=== PATIENT | male | born 1950 | race Caucasian/White ===

== ENCOUNTER → 2017-01-27 | Day surgery (SDC) | payer OTHER ==
[~2017-01-27] VITALS: Ht 180.3 cm; Wt 103.1 kg
[~2017-01-27] MED LIST: *HYDROmorphone PF 1 MG VIAL PERIprocedural Use ONLY ONE; *RESP: ALBUTEROL 2.5 MG/3 ML NEB (PRN) PERIprocedural Use ONLY NEB ONE; *morphine SULFATE 8 MG/ML PERIprocedure ONLY ONE; ACETAMINOPHEN 1000 MG/100 ML VIAL IV ONE; ACETAMINOPHEN 1000 MG/100 ML VIAL IV SCH; ASPI1TAB69 PO; ATOR40TA16 PO; BUPIVACAINE LIPOSOME PF 1.3% 20 ML VIAL NERV BLOCK ONE; BUPIVACAINE/EPINEPHRINE 0.25% 50 ML VIAL ONE; BUPIVACAINE/EPINEPHRINE 0.5% PF 30 ML VIAL ONE; CARD4TAB2 PO; COUM10TA PO; COUM7.5T PO; DEXAMETHASONE SOD PHOS 4 MG/ML VIAL ONE; DO NOT ADM ANY ANTICOAGULANT DRUGS XX PRN; ENOX100P SQ; FAMOTIDINE 20 MG/2 ML VIAL ONE; INSULIN HUMAN REGULAR 1,000 UNITS/10 ML VIAL SQ PRN; JANT10TA PO; JANT7.5T PO; KETOROLAC TROMETHAMINE 60 MG/2 ML (IM) VIAL IM ONE; LACTATED RINGER'S 1000 ML IV SCH; LISI10TA3 PO; METOPROLOL TARTRATE 25 MG TAB PO PRN; MIDAZOLAM HCL 2 MG/2 ML VIAL ONE; MORPHINE SULFATE 4 MG/ML INJ IV PRN; NEOSTIGMINE 3 MG/3 ML SYR IV ONE; ONDANSETRON HCL 4 MG/2 ML VIAL IV PRN; ONDANSETRON HCL 4 MG/2 ML VIAL IV PUSH ONE; PHENYLEPH/NS 1000 MCG/10 ML SYR IV ONE; PROPOFOL 200 MG/20 ML AMP IV ONE; PROS5TAB PO; SODIUM CHLORID 0.9% 500 ML INJ 500 ML IV ONE; SODIUM CHLORID 0.9% 500 ML IV SCH; VITA100018 PO; ceFAZolin 2 GM PREMIX 50 ML IV SCH; ceFAZolin 2 GM PREMIX 50 ML ONE; fentaNYL CITRATE 250 MCG/5 ML AMP ONE; oxyCODONE/ACETAMINOPHEN 5 MG/325 MG TAB PO PRN
[2017-01-27 07:10] VITALS: BP 144/82; PULSE 62; RESP 18; TEMP 98.2; O2SAT 98
[2017-01-27 07:44] LABS: PROTHROMBIN TIME - PATIENT 11.1 SEC (9.8-11.6)
[2017-01-27 15:42] VITALS: BP 155/84; PULSE 81; RESP 16; TEMP 97.8; O2SAT 98
--- NOTE | 2017-01-29 08:45 | MP ---
cc: CESAR DACOSTA DATE OF SURGERY 01/27/2017 PREOPERATIVE DIAGNOSIS Umbilical hernia and superior anterior abdominal wall hernia. POSTOPERATIVE DIAGNOSIS Umbilical hernia and superior anterior abdominal wall hernia. PROCEDURE Laparoscopic repair of abdominal wall hernias x2. SURGEON Cesar Dacosta MD MARINE STEWARD Dequan Boles, MS-3 ANESTHESIA General endotracheal OPERATIVE FINDINGS The patient was found to have a 4.5-5 cm hernia in the upper midline which was just inferior to the falciform ligament. He was also found to have a 3 cm umbilical hernia defect. Both hernias had omentum incarcerated within them, but no viscera. No other abnormalities were noted. OPERATIVE PROCEDURE The patient brought to the operating room after having undergone placement of a TAP block using Exparel. After satisfactory general endotracheal anesthesia was obtained, the abdomen was prepped and draped in the usual sterile fashion. 0.25% Marcaine with epinephrine was used to infiltrate the skin for local anesthesia. A skin incision was made in the left subcostal region and carried down bluntly to the fascia which was then divided bluntly. Using finger dissection, the peritoneal cavity was entered with care being taken not to injure the underlying viscera. A GelPort was placed within the peritoneal cavity which was then insufflated to 15 mmHg using carbon dioxide. The camera was inserted and visceral injury inspected for, with none being identified. Under direct visualization, 5-mm ports were placed in the left lower, right lower and right upper quadrants without problem. The omentum was taken down with the harmonic scalpel without problem. The peritoneal fat was then taken down with a harmonic scalpel as well to allow a good base the peritoneum for the mesh. Due to the size of the hernias and the 10 cm distance apart, it was decided to use a 20 x 25 cm piece of [address]ight ST mesh. The mesh, which was incorporated with an echo deployment system was rolled and then placed within the peritoneal cavity without problem. It was unfurled and then an insufflation tubing was brought through the skin in the midportion of the abdomen using a Monkton suture passer. The mesh backbone was inflated and then the mesh brought into close approximation to the abdominal wall and oriented in the proper way to cover all areas of the hernias. The mesh was then tacked into place with the Ethicon tacker, and once the circumferential tacking had been completed, the mesh backbone was removed and discarded. The mesh was then completely tacked to the anterior abdominal wall using more of the absorbable tacks. Hemostasis was checked for and found to be quite satisfactory. The hernia defects were checked by direct visualization and found to be completely covered by least 8-10 cm in all directions. Hemostasis was again checked for and found to be satisfactory. The trocars were removed after removing as much of the carbon dioxide as possible. The fascial defect in the left upper quadrant was closed with interrupted 0 Vicryl sutures and the skin incisions all closed with interrupted 4-0 PDS subcuticular stitches. Steri-Strips were applied and the patient was then awakened and taken from the operating room in satisfactory condition having tolerated the procedure without problem. Estimated blood loss was less than 15 mL. The instrument, sponge, and needle counts were reported as being correct x2 at the end of the procedure. MD SALVATORE Coffey/JOCELYNN /4:20 PM /8:36 AM
== END | disposition home or self-care (01) ==
LOC: HSDC 06:39
PROVIDERS: ATTEND Surgery
DX: K42.9 Umbilical hernia without obstruction or gangrene (principal); K43.9 Ventral hernia without obstruction or gangrene; I10 Essential (primary) hypertension; E78.5 Hyperlipidemia, unspecified; I25.10 Atherosclerotic heart disease of native coronary artery without angina pectoris; Z79.01 Long term (current) use of anticoagulants; Z95.2 Presence of prosthetic heart valve
CPT/HCPCS: 00752; 49652; 64488; 85610; 94664; C1781; J0131; J0690; J1100; J1170; J2250; J2270; J2370; J2405; J2710; J3010; J7040; J7120; J7613; C9290

== ENCOUNTER 2017-01-31 14:14 | Inpatient (IN) | payer OTHER, MEDICARE ==
[~2017-01-31] VITALS: Ht 177.8 cm; Wt 98.5 kg
[2017-01-31] VITALS (8 sets, daily range): BP systolic 98–136; BP diastolic 61–80; PULSE 102–130; RESP 14–20; TEMP 97.7–97.8; O2SAT 93–95
[~2017-01-31 14:14] MED LIST changes: -*HYDROmorphone PF 1 MG VIAL PERIprocedural Use ONLY ONE; -*RESP: ALBUTEROL 2.5 MG/3 ML NEB (PRN) PERIprocedural Use ONLY NEB ONE; -*morphine SULFATE 8 MG/ML PERIprocedure ONLY ONE; -ACETAMINOPHEN 1000 MG/100 ML VIAL IV ONE; -ACETAMINOPHEN 1000 MG/100 ML VIAL IV SCH; -BUPIVACAINE LIPOSOME PF 1.3% 20 ML VIAL NERV BLOCK ONE; -BUPIVACAINE/EPINEPHRINE 0.25% 50 ML VIAL ONE; -BUPIVACAINE/EPINEPHRINE 0.5% PF 30 ML VIAL ONE; -DEXAMETHASONE SOD PHOS 4 MG/ML VIAL ONE; -DO NOT ADM ANY ANTICOAGULANT DRUGS XX PRN; -FAMOTIDINE 20 MG/2 ML VIAL ONE; -INSULIN HUMAN REGULAR 1,000 UNITS/10 ML VIAL SQ PRN; -JANT10TA PO; -JANT7.5T PO; -KETOROLAC TROMETHAMINE 60 MG/2 ML (IM) VIAL IM ONE; -LACTATED RINGER'S 1000 ML IV SCH; -METOPROLOL TARTRATE 25 MG TAB PO PRN; -MIDAZOLAM HCL 2 MG/2 ML VIAL ONE; -MORPHINE SULFATE 4 MG/ML INJ IV PRN; -NEOSTIGMINE 3 MG/3 ML SYR IV ONE; -ONDANSETRON HCL 4 MG/2 ML VIAL IV PRN; -ONDANSETRON HCL 4 MG/2 ML VIAL IV PUSH ONE; -PHENYLEPH/NS 1000 MCG/10 ML SYR IV ONE; -PROPOFOL 200 MG/20 ML AMP IV ONE; -SODIUM CHLORID 0.9% 500 ML INJ 500 ML IV ONE; -SODIUM CHLORID 0.9% 500 ML IV SCH; -ceFAZolin 2 GM PREMIX 50 ML IV SCH; -ceFAZolin 2 GM PREMIX 50 ML ONE; -fentaNYL CITRATE 250 MCG/5 ML AMP ONE; -oxyCODONE/ACETAMINOPHEN 5 MG/325 MG TAB PO PRN
[2017-01-31] MEDS ORDERED: SODIUM CHLOR 0.9% 1000 ML INJ 1,000 ML IV SCH (14:40)
[2017-01-31] MEDS ORDERED: ONDANSETRON HCL 4 MG/2 ML VIAL IVP ONE (14:45)
[2017-01-31] MEDS ORDERED: JANT7.5T PO (14:48)
[2017-01-31] MEDS ORDERED: JANT10TA PO (14:48)
--- NOTE | 2017-01-31 14:50 | PD ---
HPI Chief Complaint: GI Complaint Time Seen by Provider: 14:29 Travel History International Travel<30 days: No Contact w/Intl Traveler<30days: No Traveled to known affect area: No History of Present Illness HPI This is a 66-year-old male who is postop day 4 from a laparoscopic ventral and umbilical hernia repair which was performed by Dr. woodard presenting today with vomiting that started last evening. He reports that he had several episodes of vomiting last evening and hasn't been able to keep anything down today. His symptoms have been worsening, constant, and he hasn't been eating and drinking. Ever since the surgery he is been having some trouble with abdominal discomfort and bloating. He tried to take hydrocodone which he thinks has contributed to his vomiting. He denies any fevers. His last bowel movement was on Thursday prior to his surgery. He has been passing some gas. PFSH Past Medical History Hx Anticoagulant Therapy: Yes (LOVENOX, COUMADIN) Heart Rhythm Problems: No Cancer: Yes Cardiovascular Problems: Yes (STENTS X5 ) High Cholesterol: Yes Chest Pain: Yes Congestive Heart Failure: No Diabetes: No Endocrine: No Genitourinary: No Hepatitis: No Hiatal Hernia: No Hypertension: Yes Immune Disorder: No Musculoskeletal: No Neurologic: No Psychiatric: No Reproductive: No Respiratory: No Thyroid Disease: No Past Surgical History Abdominal Surgery: Yes AICD: No Body Medical Devices: HEART VALVE, 5 STENTS Cardiac Surgery: Yes (5 STENTS 18MONTHS AGO / HEART VALVE 95) Ear Surgery: No Endocrine Surgery: No Eye Surgery: No Genitourinary Surgery: Yes (PROSTATE SURGERY) Gynecologic Surgery: No Joint Replacement: No Oral Surgery: Yes (Tonsilectomy) Pacemaker: No Thoracic Surgery: Yes Tonsillectomy: Yes Valve Replacement: Yes (AORTIC) Family History Family Hypercholesterolemia: Yes Social History Alcohol Use: No Tobacco Use: No Substance Use: No Allergies-Medications (Allergen,Severity, Reaction): Coded Allergies: No Known Allergies (Verified , 01/31/17) Reported Meds & Prescriptions Reported Meds & Active Scripts Active Reported Jantoven (Warfarin) 7.5 Mg Tab 7.5 Mg PO ONE DAY A WEEK Jantoven (Warfarin) 10 Mg Tab 10 Mg PO 6 DAYS PER WEEK Vitamin D3 (Cholecalciferol) 1,000 Unit Tab 1,000 Units PO DAILY Lisinopril 10 Mg Tab 10 Mg PO DAILY Proscar (Finasteride) 5 Mg Tab 5 Mg PO DAILY Do not crush. Lovenox Inj (Enoxaparin Sodium) 100 Mg/Ml Syr 100 Mg SQ BID PT REPORTS LAST DOSE IS TO BE 3 PM Cardura (Doxazosin Mesylate) 4 Mg Tab 4 Mg PO DAILY Atorvastatin (Atorvastatin Calcium) 40 Mg Tab 40 Mg PO HS Aspirin 81 Mg Tabdr 81 Mg PO DAILY Review of Systems Except as stated in HPI: all other systems reviewed are Neg Physical Exam Narrative GENERAL: Pale, uncomfortable appearing SKIN: Focused skin assessment warm and dry. HEAD: Atraumatic. Normocephalic. EYES: Pupils equal and round. No injection or drainage. ENT: Dry mucous membranes NECK: Trachea midline. CARDIOVASCULAR: Tachycardic No murmur appreciated. RESPIRATORY: Clear to auscultation. Breath sounds equal bilaterally. GASTROINTESTINAL: Abdomen distended, bruising around the umbilicus, diffusely tender to palpation MUSCULOSKELETAL: No obvious deformities. NEUROLOGICAL: Awake and alert. No obvious cranial nerve deficits. Moving all extremities. PSYCHIATRIC: Appropriate mood and affect; insight and judgment normal. Data Data Last Documented VS Vital Signs Date Time Temp Pulse Resp B/P Pulse Ox O2 Delivery O2 Flow Rate FiO2 01/31/17 17:08 116 17 98/71 94 Room Air 01/31/17 14:19 97.8 Orders Complete Blood Count With Diff (01/31/17 14:40) Comprehensive Metabolic Panel (01/31/17 14:40) Lipase (01/31/17 14:40) Urinalysis - C+S If Indicated (01/31/17 14:40) Ct Abd/Pel W Iv Contrast(Rout) (01/31/17 14:40) Iv Access Insert/Monitor (01/31/17 14:40) Ecg Monitoring (01/31/17 14:40) Oximetry (01/31/17 14:40) Ondansetron Inj (Zofran Inj) (01/31/17 14:45) Sodium Chlor 0.9% 1000 Ml Inj (Ns 1000 M (01/31/17 14:40) Sodium Chloride 0.9% Flush (Ns Flush) (01/31/17 14:45) Lactic Acid (01/31/17 14:40) Prothrombin Time / Inr (Pt) (01/31/17 14:40) Act Partial Throm Time (Ptt) (01/31/17 14:40) Hydromorphone Pf Inj (Dilaudid Pf Inj) (01/31/17 16:15) Type And Screen (01/31/17 16:02) Iohexol 350 Inj (Omnipaque 350 Inj) (01/31/17 16:19) Admit Order (Ed Use Only) (01/31/17 17:33) Labs Laboratory Tests Test 01/31/17 01/31/17 14:45 16:10 White Blood Count 12.8 TH/MM3 Red Blood Count 3.30 MIL/MM3 Hemoglobin 9.7 GM/DL Hematocrit 29.9 % Mean Corpuscular Volume 90.7 FL Mean Corpuscular Hemoglobin 29.4 PG Mean Corpuscular Hemoglobin 32.4 % Concent Red Cell Distribution Width 14.6 % Platelet Count 280 TH/MM3 Mean Platelet Volume 7.6 FL Neutrophils (%) (Auto) 84.2 % Lymphocytes (%) (Auto) 9.9 % Monocytes (%) (Auto) 5.7 % Eosinophils (%) (Auto) 0.0 % Basophils (%) (Auto) 0.2 % Neutrophils # (Auto) 10.8 TH/MM3 Lymphocytes # (Auto) 1.3 TH/MM3 Monocytes # (Auto) 0.7 TH/MM3 Eosinophils # (Auto) 0.0 TH/MM3 Basophils # (Auto) 0.0 TH/MM3 CBC Comment DIFF FINAL Differential Comment Prothrombin Time 21.6 SEC Prothromb Time International 1.9 RATIO Ratio Activated Partial 42.2 SEC Thromboplast Time Sodium Level 137 MEQ/L Potassium Level 4.6 MEQ/L Chloride Level 97 MEQ/L Carbon Dioxide Level 27.6 MEQ/L Anion Gap 12 MEQ/L Blood Urea Nitrogen 32 MG/DL Creatinine 1.60 MG/DL Estimat Glomerular Filtration 44 ML/MIN Rate Random Glucose 185 MG/DL Lactic Acid Level 2.8 mmol/L Calcium Level 9.0 MG/DL Total Bilirubin 0.7 MG/DL Aspartate Amino Transf 46 U/L (AST/SGOT) Alanine Aminotransferase 67 U/L (ALT/SGPT) Alkaline Phosphatase 110 U/L Total Protein 6.9 GM/DL Albumin 2.8 GM/DL Lipase 87 U/L Blood Type O POSITIVE MDM Medical Decision Making Medical Screen Exam Complete: Yes Emergency Medical Condition: Yes Interpretation(s) Afebrile, tachycardic, normotensive Leukocytosis Anemia 84% neutrophils Renal insufficiency Lactic acid is 2.[address] abdomen and pelvis: Likely hematoma involving a ventral hernia with diffuse ileus Differential Diagnosis Small bowel obstruction, ileus, hematoma, constipation Narrative Course This is a 66-year-old male who presents to the emergency department having recently had surgical repair on an umbilical hernia and a ventral hernia by Dr. woodard who presents today with increasing abdominal pain and vomiting that started last evening. He was placed on a monitor and an IV was established. He was found to be tachycardic. Labs were notable for hemoglobin of 9.7, renal insufficiency and a mildly elevated lactic acid. CT abdomen and pelvis was obtained which initially demonstrated a suggestion of small bowel obstruction and possible mass in the abdomen. On further conversation with radiology and Dr. woodard we suspect that this is hematoma and that the patient has an ileus due to intra-abdominal bleeding. Patient will be admitted to the main hospital for close hemoglobin monitoring. He was given 2 L of IV hydration here in the emergency department. Lactic acid is likely elevated in the setting of dehydration and hemorrhage. We will defer blood but we will repeat a hemoglobin at 9 PM. Patient's course is complicated due to his history of mechanical valve. Currently his INR is 1.9. Dr. Woodard will monitor and likely administer Lovenox tomorrow. Physician Communication Physician Communication Discussed with Dr. woodard Diagnosis Primary Impression: Hematoma Additional Impression: Ileus Admitting Information Admitting Physician Requests: Admit Donna Burnette MD Jan 31, 2017 14:50
[2017-01-31 15:04] LABS: AUTOMATED NEUTROPHIL # 10.8 TH/MM3 (1.8-7.7); BASOPHIL % 0.2 % (0.0-2.0); HEMATOCRIT 29.9 % (39.0-51.0); HEMO FLAGS DIFF FINAL; LYMPH % 9.9 % (9.0-44.0); LYMPHOCYTE # 1.3 TH/MM3 (1.0-4.8); MEAN CELL VOLUME 90.7 FL (80.0-100.0); MEAN CORPUSCULAR HEMOGLOBIN 29.4 PG (27.0-34.0); MEAN CORPUSCULAR HGB CONC 32.4 % (32.0-36.0); MONO % 5.7 % (0.0-8.0); NEUT % 84.2 % (16.0-70.0); PLATELET COUNT 280 TH/MM3 (150-450); RED CELL DISTRIBUTION WIDTH 14.6 % (11.6-17.2); WHITE BLOOD COUNT 12.8 TH/MM3 (4.0-11.0)
[2017-01-31 15:14] LABS: CHLORIDE 97 MEQ/L (98-107); POTASSIUM 4.6 MEQ/L (3.5-5.1); SODIUM (NA) 137 MEQ/L (136-145)
[2017-01-31 15:17] LABS: ANION GAP 12 MEQ/L (5-15); BICARBONATE 27.6 MEQ/L (21.0-32.0)
[2017-01-31 15:18] LABS: BLOOD UREA NITROGEN 32 MG/DL (7-18)
[2017-01-31 15:19] LABS: APTT (PATIENT) 42.2 SEC (24.3-30.1); INTERNATIONAL NORMALIZED RATIO 1.9 RATIO; PROTHROMBIN TIME - PATIENT 21.6 SEC (9.8-11.6)
[2017-01-31 15:20] LABS: ALT (GPT) 67 U/L (12-78); AST (GOT) 46 U/L (15-37); GLOMERULAR FILTRATION RATE 44 ML/MIN (>89)
[2017-01-31 15:22] LABS: TOTAL BILIRUBIN ADULT 0.7 MG/DL (0.2-1.0)
[2017-01-31 15:23] LABS: ALKALINE PHOSPHATASE 110 U/L (45-117)
[2017-01-31] MEDS ORDERED: HYDROmorphone HCL PF 1 MG/ML VIAL IV PUSH ONE (16:15)
[2017-01-31] MEDS ORDERED: IOHEXOL 350 MG/ML 10 ML VIAL (for RAD DIAG) IV ONE (16:19)
--- NOTE | 2017-01-31 17:06 | RADHPO ---
EXAM DATE/TIME: 01/31/2017 15:37 This report includes an Addendum and supersedes previous reports for this exam. [facility] COMPARISON: No previous studies available for comparison. INDICATIONS : Diffuse abdomen pain. IV CONTRAST: 93 cc Omnipaque 350 (iohexol) IV ORAL CONTRAST: No oral contrast ingested. RADIATION DOSE: 21.17 CTDIvol (mGy) MEDICAL HISTORY : Hernia, inguinal. SURGICAL HISTORY : Inguinal hernia repair. ENCOUNTER: Initial ACUITY: 4 - 6 days PAIN SCALE: 5/10 LOCATION: abdomen TECHNIQUE: Volumetric scanning of the abdomen and pelvis was performed. Using automated exposure control and ad justment of the mA and/or kV according to patient size, radiation dose was kept as low as reasonably achievable to obtain optimal diagnostic quality images. FINDINGS: Examination is abnormal. There is a moderate amount of ascites in the upper abdomen tracking along b oth paracolic gutters to the root of the mesentery in the right lower quadrant, but not into the pelv is. There are multiple dilated loops of small bowel throughout the abdomen measuring up to 3.9 cm in dimension. There are air-fluid levels in these loops of small bowel. Some stool is seen in the col on but the colon is nondistended. There is a ventral hernia in the upper midline abdomen, superior to the umbilicus with separation bet ween the rectus muscles measuring 2.3 cm. There is a loop of bowel which extends into the hernia and a loop of bowel which is located within the peritoneum has an abnormal appearance, measures 5.4 cm, and contains a fluid fluid level within the lobe. This suggests a focal obstruction. There is an irregular margin mass in the anterior upper abdomen midline adjacent to the antrum of the stomach. There is an irregular margination or induration of the fat about this masslike lesion. Di mension is 7.5 x 3.6 cm. It is uncertain whether this is anterior to the antrum of the stomach oral rising from the antrum. The liver, spleen, gallbladder, kidneys, adrenal glands, and pancreas have a normal appearance. Urin yola bladder margins are smooth. There is a bladder diverticulum posterolateral left side measuring 2 .5 cm. Inguinal regions unremarkable. There are some patchy infiltrates in the visualized lower lizette gs. Wide windows for bony detail demonstrate osseous structures to be grossly intact. CONCLUSION: Abnormal examination with several findings including a ventral hernia upper midline abdomen containin g a loop of bowel and with the dilated loop of bowel in the peritoneal side suggesting obstruction. There are all dilated loops of small bowel throughout the abdomen and pelvis. There is also a greater than 7 cm masslike density in the upper midline abdomen, adjacent to or arising from the antrum of t he stomach suspicious for malignancy. Jamar Busby MD on January 31, 2017 at 16:55 Board Certified Radiologist. This report was verified electronically. ADDENDUM: This case has been discussed with Dr. Burnette. The patient has had recent ventral hernia repair and i s on blood thinners. The fluid/fluid levels seen anteriorly adjacent to the ventral defect could be layering blood products. The hyperdense material with in the hernia is mean CT density of 60 Hounsfi eld units and could also represent blood products instead of a loop of bowel. The mean CT density of the focal abnormality anterior to the stomach is 66 Hounsfield units, and could also represent a hem atoma. Jamar Busby MD on January 31, 2017 at 17:32 Board Certified Radiologist. This report was verified electronically.
[2017-01-31] MEDS ORDERED: SODIUM CHLOR 0.9% 1000 ML INJ 1,000 ML IV ONE (18:00)
[2017-01-31] MEDS ORDERED: HYDROmorphone HCL PF 2 MG/ML VIAL IV PUSH PRN (21:15)
[2017-01-31] MEDS: ONDANSETRON HCL 4 MG/2 ML VIAL IV PUSH PRN (22:08)
[2017-01-31] MEDS: D5-1/2 NS + KCL 20 MEQ INJ 1,000 ML IV SCH (22:08)
[2017-01-31] MEDS: HYDROmorphone HCL PF 1 MG/ML VIAL IV PUSH PRN (22:08)
[2017-01-31 22:09] LABS: AUTOMATED NEUTROPHIL # 9.5 TH/MM3 (1.8-7.7); BASOPHIL % 0.2 % (0.0-2.0); EOSINOPHIL % 0.1 % (0.0-4.0); HEMATOCRIT 24.1 % (39.0-51.0); HEMO FLAGS DIFF FINAL; LYMPH % 11.1 % (9.0-44.0); LYMPHOCYTE # 1.3 TH/MM3 (1.0-4.8); MEAN CELL VOLUME 89.7 FL (80.0-100.0); MEAN CORPUSCULAR HEMOGLOBIN 30.6 PG (27.0-34.0); MEAN CORPUSCULAR HGB CONC 34.1 % (32.0-36.0); MONO % 6.9 % (0.0-8.0); NEUT % 81.7 % (16.0-70.0); PLATELET COUNT 231 TH/MM3 (150-450); RED BLOOD COUNT 2.69 MIL/MM3 (4.50-5.90); WHITE BLOOD COUNT 11.6 TH/MM3 (4.0-11.0)
[2017-01-31 23:02] LABS: BLOOD, URINE TRACE (NEG); COMMENT (UR) CULT NOT INDICATED; CULTURE IF INDICATED CULT NOT INDICATED; GLUCOSE,URINE TRACE mg/dL (NEG); KETONE, URINE NEG (NEG); MUCUS URINE MOD /lpf (OCC); NITRITE,URINE NEG (NEG); PH, URINE 5.5 (5.0-8.5); URINE COLOR YELLOW (YELLW/STRAW)
[2017-02-01] VITALS (8 sets, daily range): BP systolic 129–153; BP diastolic 65–89; PULSE 104–116; RESP 17–20; TEMP 95.3–98.4; O2SAT 91–94
[2017-02-01] MEDS: D5-1/2 NS + KCL 20 MEQ INJ 1,000 ML IV SCH ×3 (05:15→21:42)
[2017-02-01] MEDS: ONDANSETRON HCL 4 MG/2 ML VIAL IV PUSH PRN ×2 (06:13→18:49)
[2017-02-01] MEDS: HYDROmorphone HCL PF 1 MG/ML VIAL IV PUSH PRN ×5 (06:14→21:42)
[2017-02-01 06:21] LABS: AUTOMATED NEUTROPHIL # 10.5 TH/MM3 (1.8-7.7); BASOPHIL % 0.2 % (0.0-2.0); HEMATOCRIT 23.6 % (39.0-51.0); HEMO FLAGS DIFF FINAL; LYMPHOCYTE # 1.1 TH/MM3 (1.0-4.8); MEAN CELL VOLUME 90.5 FL (80.0-100.0); MEAN CORPUSCULAR HGB CONC 33.1 % (32.0-36.0); MONO % 7.6 % (0.0-8.0); NEUT % 83.2 % (16.0-70.0); PLATELET COUNT 243 TH/MM3 (150-450); RED CELL DISTRIBUTION WIDTH 14.9 % (11.6-17.2); WHITE BLOOD COUNT 12.6 TH/MM3 (4.0-11.0)
[2017-02-01 06:32] LABS: INTERNATIONAL NORMALIZED RATIO 2.2 RATIO; PROTHROMBIN TIME - PATIENT 24.9 SEC (9.8-11.6)
[2017-02-01 06:45] LABS: BICARBONATE 29.1 MEQ/L (21.0-32.0); POTASSIUM 4.6 MEQ/L (3.5-5.1)
[2017-02-01] MEDS: BISACODYL 10 MG SUPP RECTAL SCH (08:11)
[2017-02-01] MEDS ORDERED: METOCLOPRAMIDE HCL 10 MG/2 ML VIAL IV PRN (09:30)
[2017-02-01] MEDS: SCOPOLAMINE 1.5 MG PATCH T-DERMAL SCH (13:09)
[2017-02-01 13:18] LABS: AUTOMATED NEUTROPHIL # 13.2 TH/MM3 (1.8-7.7); BASOPHIL % 0.2 % (0.0-2.0); HEMATOCRIT 23.3 % (39.0-51.0); HEMO FLAGS DIFF FINAL; LYMPH % 6.3 % (9.0-44.0); LYMPHOCYTE # 0.9 TH/MM3 (1.0-4.8); MEAN CELL VOLUME 90.2 FL (80.0-100.0); MEAN CORPUSCULAR HEMOGLOBIN 29.8 PG (27.0-34.0); MONO % 5.8 % (0.0-8.0); NEUT % 87.7 % (16.0-70.0); PLATELET COUNT 277 TH/MM3 (150-450); RED BLOOD COUNT 2.58 MIL/MM3 (4.50-5.90); RED CELL DISTRIBUTION WIDTH 15.3 % (11.6-17.2)
--- NOTE | 2017-02-01 14:09 | HHI.HP ---
General Surgery H&P Brief history: The patient is a 66-year-old male who underwent laparoscopic repair of ventral incisional hernias 2 on 27 January. He had quite a bit of pain in the first few days but was otherwise doing well until he began experiencing nausea and emesis yesterday. He eventually came to the emergency department a [place] where CT scan showed what was initially thought to be a possible bowel obstruction but upon further review was found to be a significant ileus with what appeared to be postoperative hemorrhage. The patient had remained hemodynamically stable during his initial postoperative course but due to the persistent abdominal distention, pain, nausea and vomiting he was admitted to the hospital. At the time of admission was found to be significantly dehydrated and IV fluid resuscitation was instituted. His hemoglobin was monitored and was found to be diminished despite the dehydration. Over the last 24 hours it has diminished from 9.7 to 7.7 as he has been hydrated. It is remained essentially stable for the last 12-18 hours. His vital signs of remained stable and he is more comfortable than he was yesterday after placement of a nasogastric tube. Past medical history is well documented in his other charts. He has a significant cardiac history with placement of 5 stents as well as aortic valve replacement in the past. Medications include lisinopril 10 mg daily, Proscar milligrams daily and Cardura 4 mg daily. Last 24 hours Impressions Abdomen/Pelvis CT 01/31/17 1440 Signed Impressions: Service Date/Time: Tuesday, January 31, 2017 15:37 - CONCLUSION: Abnormal examination with several findings including a ventral hernia upper midline abdomen containing a loop of bowel and with the dilated loop of bowel in the peritoneal side suggesting obstruction. There are all dilated loops of small bowel throughout the abdomen and pelvis. There is also a greater than 7 cm masslike density in the upper midline abdomen, adjacent to or arising from the antrum of the stomach suspicious for malignancy. Jamar Busby MD ADDENDUM: This case has been discussed with Dr. Burnette. The patient has had recent ventral hernia repair and is on blood thinners. The fluid/fluid levels seen anteriorly adjacent to the ventral defect could be layering blood products. The hyperdense material with in the hernia is mean CT density of 60 Hounsfield units and could also represent blood products instead of a loop of bowel. The mean CT density of the focal abnormality anterior to the stomach is 66 Hounsfield units, and could also represent a hematoma. Jamar Busby MD Laboratory Tests Test 01/31/17 01/31/17 01/31/17 02/01/17 14:45 16:10 21:50 05:56 White Blood Count 12.8 TH/MM3 11.6 TH/MM3 12.6 TH/MM3 Red Blood Count 3.30 MIL/MM3 2.69 MIL/MM3 2.60 MIL/MM3 Hemoglobin 9.7 GM/DL 8.2 GM/DL 7.8 GM/DL Hematocrit 29.9 % 24.1 % 23.6 % Mean Corpuscular Volume 90.7 FL 89.7 FL 90.5 FL Mean Corpuscular Hemoglobin 29.4 PG 30.6 PG 30.0 PG Mean Corpuscular Hemoglobin 32.4 % 34.1 % 33.1 % Concent Red Cell Distribution Width 14.6 % 15.0 % 14.9 % Platelet Count 280 TH/MM3 231 TH/MM3 243 TH/MM3 Mean Platelet Volume 7.6 FL 7.7 FL 7.3 FL Neutrophils (%) (Auto) 84.2 % 81.7 % 83.2 % Lymphocytes (%) (Auto) 9.9 % 11.1 % 9.0 % Monocytes (%) (Auto) 5.7 % 6.9 % 7.6 % Eosinophils (%) (Auto) 0.0 % 0.1 % 0.0 % Basophils (%) (Auto) 0.2 % 0.2 % 0.2 % Neutrophils # (Auto) 10.8 TH/MM3 9.5 TH/MM3 10.5 TH/MM3 Lymphocytes # (Auto) 1.3 TH/MM3 1.3 TH/MM3 1.1 TH/MM3 Monocytes # (Auto) 0.7 TH/MM3 0.8 TH/MM3 1.0 TH/MM3 Eosinophils # (Auto) 0.0 TH/MM3 0.0 TH/MM3 0.0 TH/MM3 Basophils # (Auto) 0.0 TH/MM3 0.0 TH/MM3 0.0 TH/MM3 CBC Comment DIFF FINAL DIFF FINAL DIFF FINAL Differential Comment Prothrombin Time 21.6 SEC 24.9 SEC Prothromb Time International 1.9 RATIO 2.2 RATIO Ratio Activated Partial 42.2 SEC 41.0 SEC Thromboplast Time Sodium Level 137 MEQ/L 137 MEQ/L Potassium Level 4.6 MEQ/L 4.6 MEQ/L Chloride Level 97 MEQ/L 102 MEQ/L Carbon Dioxide Level 27.6 MEQ/L 29.1 MEQ/L Anion Gap 12 MEQ/L 6 MEQ/L Blood Urea Nitrogen 32 MG/DL 31 MG/DL Creatinine 1.60 MG/DL 1.32 MG/DL Estimat Glomerular Filtration 44 ML/MIN 54 ML/MIN Rate Random Glucose 185 MG/DL 172 MG/DL Lactic Acid Level 2.8 mmol/L Calcium Level 9.0 MG/DL 8.3 MG/DL Total Bilirubin 0.7 MG/DL Aspartate Amino Transf 46 U/L (AST/SGOT) Alanine Aminotransferase 67 U/L (ALT/SGPT) Alkaline Phosphatase 110 U/L Total Protein 6.9 GM/DL Albumin 2.8 GM/DL Lipase 87 U/L Blood Type O POSITIVE Antibody Screen NEGATIVE Urine Color YELLOW Urine Turbidity CLEAR Urine pH 5.5 Urine Specific [place] GREATER THAN 1.050 Urine Protein 30 mg/dL Urine Glucose (UA) TRACE mg/dL Urine Ketones NEG mg/dL Urine Occult Blood TRACE Urine Nitrite NEG Urine Bilirubin NEG Urine Urobilinogen LESS THAN 2.0 MG/DL Urine Leukocyte Esterase NEG Urine RBC 3 /hpf Urine WBC 2 /hpf Urine Mucus MOD /lpf Microscopic Urinalysis Comment CULT NOT INDICATED Test 02/01/17 12:59 White Blood Count 15.0 TH/MM3 Red Blood Count 2.58 MIL/MM3 Hemoglobin 7.7 GM/DL Hematocrit 23.3 % Mean Corpuscular Volume 90.2 FL Mean Corpuscular Hemoglobin 29.8 PG Mean Corpuscular Hemoglobin 33.0 % Concent Red Cell Distribution Width 15.3 % Platelet Count 277 TH/MM3 Mean Platelet Volume 7.4 FL Neutrophils (%) (Auto) 87.7 % Lymphocytes (%) (Auto) 6.3 % Monocytes (%) (Auto) 5.8 % Eosinophils (%) (Auto) 0.0 % Basophils (%) (Auto) 0.2 % Neutrophils # (Auto) 13.2 TH/MM3 Lymphocytes # (Auto) 0.9 TH/MM3 Monocytes # (Auto) 0.9 TH/MM3 Eosinophils # (Auto) 0.0 TH/MM3 Basophils # (Auto) 0.0 TH/MM3 CBC Comment DIFF FINAL Differential Comment Physical exam: Vital Signs Date Time Temp Pulse Resp B/P Pulse Ox O2 Delivery O2 Flow Rate FiO2 02/01/17 11:32 96.1 112 18 141/83 92 02/01/17 07:26 95.3 115 18 141/85 92 02/01/17 04:00 98.4 114 20 153/89 92 02/01/17 00:00 98.0 112 18 151/81 92 01/31/17 22:25 114 01/31/17 20:00 97.7 112 20 136/80 93 01/31/17 19:53 18 95 01/31/17 19:10 18 01/31/17 19:10 102 18 103/67 94 Room Air 01/31/17 18:08 112 17 107/61 94 Room Air 01/31/17 17:08 116 17 98/71 94 Room Air 01/31/17 16:48 16 01/31/17 16:08 112 16 117/77 95 01/31/17 14:45 16 95 Room Air 01/31/17 14:19 97.8 130 14 107/77 94 HEENT: No abnormalities. CHEST: Lungs are clear to percussion and auscultation/heart has regular rate and rhythm ABDOMEN: Abdomen is distended and moderately tender but without peritoneal signs is not tympanitic. EXTREMITIES: No cyanosis, clubbing, or edema. NEUROLOGIC: exam grossly intact Impression: Postoperative bleed following laparoscopic ventral incisional hernia repairs with mesh. He is hemodynamically stable at this point although his hemoglobin has diminished to 7.7. He has a significant ileus on the basis of surgery, increased narcotics, and intra-abdominal blood. Plan: Repeat CBC will be obtained later this evening. He has been typed and crossed and will receive blood should he require it. Continue hydration and nasogastric suction will be continued for now. Consultation will be undertaken tomorrow with Dr. Ayala regarding further anticoagulant therapy. I have had a full discussion with the patient and his regarding the above findings and plan. Cesar Joiner MD Feb 01, 2017 14:09
[2017-02-01] MEDS: FINASTERIDE 5 MG TAB PO SCH (15:52)
[2017-02-01] MEDS: LISINOPRIL 10 MG TAB PO SCH (15:52)
[2017-02-01] MEDS: DOXAZOSIN MESYLATE 4 MG TAB PO SCH (15:52)
[2017-02-01 20:12] LABS: BASOPHIL % 0.2 % (0.0-2.0); EOSINOPHIL % 0.1 % (0.0-4.0); HEMATOCRIT 21.8 % (39.0-51.0); HEMO FLAGS DIFF FINAL; LYMPH % 8.3 % (9.0-44.0); LYMPHOCYTE # 1.1 TH/MM3 (1.0-4.8); MEAN CELL VOLUME 91.2 FL (80.0-100.0); MEAN CORPUSCULAR HEMOGLOBIN 29.8 PG (27.0-34.0); MEAN CORPUSCULAR HGB CONC 32.7 % (32.0-36.0); MONO % 9.2 % (0.0-8.0); NEUT % 82.2 % (16.0-70.0); PLATELET COUNT 279 TH/MM3 (150-450); RED CELL DISTRIBUTION WIDTH 15.4 % (11.6-17.2); WHITE BLOOD COUNT 13.4 TH/MM3 (4.0-11.0)
[2017-02-02] VITALS (8 sets, daily range): BP systolic 114–121; BP diastolic 58–70; PULSE 104–119; RESP 17–18; TEMP 96.3–98.7; O2SAT 91–93
[2017-02-02] MEDS: HYDROmorphone HCL PF 1 MG/ML VIAL IV PUSH PRN ×3 (00:52→15:28)
[2017-02-02] MEDS: BISACODYL 10 MG SUPP RECTAL SCH (09:00)
[2017-02-02] MEDS: DOXAZOSIN MESYLATE 4 MG TAB PO SCH (09:39)
[2017-02-02] MEDS: FINASTERIDE 5 MG TAB PO SCH (09:39)
[2017-02-02] MEDS: LISINOPRIL 10 MG TAB PO SCH (09:39)
[2017-02-02 11:03] LABS: AUTOMATED NEUTROPHIL # 9.2 TH/MM3 (1.8-7.7); BASOPHIL % 0.1 % (0.0-2.0); EOSINOPHIL % 0.2 % (0.0-4.0); HEMATOCRIT 26.6 % (39.0-51.0); HEMO FLAGS DIFF FINAL; LYMPH % 7.5 % (9.0-44.0); LYMPHOCYTE # 0.8 TH/MM3 (1.0-4.8); MEAN CELL VOLUME 88.7 FL (80.0-100.0); MEAN CORPUSCULAR HEMOGLOBIN 29.9 PG (27.0-34.0); MEAN CORPUSCULAR HGB CONC 33.7 % (32.0-36.0); MONO % 8.8 % (0.0-8.0); NEUT % 83.4 % (16.0-70.0); PLATELET COUNT 229 TH/MM3 (150-450); RED CELL DISTRIBUTION WIDTH 15.4 % (11.6-17.2); WHITE BLOOD COUNT 11.1 TH/MM3 (4.0-11.0)
[2017-02-02 11:13] LABS: APTT (PATIENT) 35.6 SEC (24.3-30.1); PROTHROMBIN TIME - PATIENT 22.7 SEC (9.8-11.6)
[2017-02-02 11:21] LABS: BICARBONATE 28.8 MEQ/L (21.0-32.0); POTASSIUM 4.4 MEQ/L (3.5-5.1)
[2017-02-02] MEDS: D5-1/2 NS + KCL 20 MEQ INJ 1,000 ML IV SCH ×2 (11:22→13:15)
[2017-02-02] MEDS: ONDANSETRON HCL 4 MG/2 ML VIAL IV PUSH PRN (18:32)
--- NOTE | 2017-02-02 19:04 | HHI.PR ---
Subjective Subjective Notes Patient feels better than yesterday, but still has significant abdominal discomfort. He is occasionally dizzy when getting up. He has passed flatus and has had 2 bowel movements today. He has had occasional nausea when the NG tube has been clamped. Objective Vitals/I&O Vital Signs Date Time Temp Pulse Resp B/P Pulse Ox O2 Delivery O2 Flow Rate FiO2 02/02/17 16:00 98.5 105 18 119/67 91 02/02/17 13:00 Room Air Labs Laboratory Tests Test 01/31/17 02/01/17 02/01/17 02/01/17 21:50 05:56 12:59 17:50 White Blood Count 11.6 TH/MM3 12.6 TH/MM3 15.0 TH/MM3 13.4 TH/MM3 Red Blood Count 2.69 MIL/MM3 2.60 MIL/MM3 2.58 MIL/MM3 2.40 MIL/MM3 Hemoglobin 8.2 GM/DL 7.8 GM/DL 7.7 GM/DL 7.1 GM/DL Hematocrit 24.1 % 23.6 % 23.3 % 21.8 % Mean Corpuscular Volume 89.7 FL 90.5 FL 90.2 FL 91.2 FL Mean Corpuscular Hemoglobin 30.6 PG 30.0 PG 29.8 PG 29.8 PG Mean Corpuscular Hemoglobin 34.1 % 33.1 % 33.0 % 32.7 % Concent Red Cell Distribution Width 15.0 % 14.9 % 15.3 % 15.4 % Platelet Count 231 TH/MM3 243 TH/MM3 277 TH/MM3 279 TH/MM3 Mean Platelet Volume 7.7 FL 7.3 FL 7.4 FL 7.2 FL Neutrophils (%) (Auto) 81.7 % 83.2 % 87.7 % 82.2 % Lymphocytes (%) (Auto) 11.1 % 9.0 % 6.3 % 8.3 % Monocytes (%) (Auto) 6.9 % 7.6 % 5.8 % 9.2 % Eosinophils (%) (Auto) 0.1 % 0.0 % 0.0 % 0.1 % Basophils (%) (Auto) 0.2 % 0.2 % 0.2 % 0.2 % Neutrophils # (Auto) 9.5 TH/MM3 10.5 TH/MM3 13.2 TH/MM3 11.0 TH/MM3 Lymphocytes # (Auto) 1.3 TH/MM3 1.1 TH/MM3 0.9 TH/MM3 1.1 TH/MM3 Monocytes # (Auto) 0.8 TH/MM3 1.0 TH/MM3 0.9 TH/MM3 1.2 TH/MM3 Eosinophils # (Auto) 0.0 TH/MM3 0.0 TH/MM3 0.0 TH/MM3 0.0 TH/MM3 Basophils # (Auto) 0.0 TH/MM3 0.0 TH/MM3 0.0 TH/MM3 0.0 TH/MM3 CBC Comment DIFF FINAL DIFF FINAL DIFF FINAL DIFF FINAL Differential Comment Urine Color YELLOW Urine Turbidity CLEAR Urine pH 5.5 Urine Specific [place] GREATER THAN 1.050 Urine Protein 30 mg/dL Urine Glucose (UA) TRACE mg/dL Urine Ketones NEG mg/dL Urine Occult Blood TRACE Urine Nitrite NEG Urine Bilirubin NEG Urine Urobilinogen LESS THAN 2.0 MG/DL Urine Leukocyte Esterase NEG Urine RBC 3 /hpf Urine WBC 2 /hpf Urine Mucus MOD /lpf Microscopic Urinalysis Comment CULT NOT INDICATED Prothrombin Time 24.9 SEC Prothromb Time International 2.2 RATIO Ratio Activated Partial 41.0 SEC Thromboplast Time Sodium Level 137 MEQ/L Potassium Level 4.6 MEQ/L Chloride Level 102 MEQ/L Carbon Dioxide Level 29.1 MEQ/L Anion Gap 6 MEQ/L Blood Urea Nitrogen 31 MG/DL Creatinine 1.32 MG/DL Estimat Glomerular Filtration 54 ML/MIN Rate Random Glucose 172 MG/DL Calcium Level 8.3 MG/DL Test 02/02/17 02/02/17 00:08 10:46 Blood Type O POSITIVE Crossmatch Leukocyte-Reduced Red Blood Cells Blood Bank Comment White Blood Count 11.1 TH/MM3 Red Blood Count 3.00 MIL/MM3 Hemoglobin 9.0 GM/DL Hematocrit 26.6 % Mean Corpuscular Volume 88.7 FL Mean Corpuscular Hemoglobin 29.9 PG Mean Corpuscular Hemoglobin 33.7 % Concent Red Cell Distribution Width 15.4 % Platelet Count 229 TH/MM3 Mean Platelet Volume 6.9 FL Neutrophils (%) (Auto) 83.4 % Lymphocytes (%) (Auto) 7.5 % Monocytes (%) (Auto) 8.8 % Eosinophils (%) (Auto) 0.2 % Basophils (%) (Auto) 0.1 % Neutrophils # (Auto) 9.2 TH/MM3 Lymphocytes # (Auto) 0.8 TH/MM3 Monocytes # (Auto) 1.0 TH/MM3 Eosinophils # (Auto) 0.0 TH/MM3 Basophils # (Auto) 0.0 TH/MM3 CBC Comment DIFF FINAL Differential Comment Prothrombin Time 22.7 SEC Prothromb Time International 2.0 RATIO Ratio Activated Partial 35.6 SEC Thromboplast Time Sodium Level 137 MEQ/L Potassium Level 4.4 MEQ/L Chloride Level 100 MEQ/L Carbon Dioxide Level 28.8 MEQ/L Anion Gap 8 MEQ/L Blood Urea Nitrogen 37 MG/DL Creatinine 1.22 MG/DL Estimat Glomerular Filtration 60 ML/MIN Rate Random Glucose 127 MG/DL Calcium Level 8.1 MG/DL Laboratory Tests Test 02/02/17 02/02/17 00:08 10:46 Blood Type O POSITIVE Crossmatch Leukocyte-Reduced Red Blood Cells Blood Bank Comment White Blood Count 11.1 Red Blood Count 3.00 Hemoglobin 9.0 Hematocrit 26.6 Mean Corpuscular Volume 88.7 Mean Corpuscular Hemoglobin 29.9 Mean Corpuscular Hemoglobin 33.7 Concent Red Cell Distribution Width 15.4 Platelet Count 229 Mean Platelet Volume 6.9 Neutrophils (%) (Auto) 83.4 Lymphocytes (%) (Auto) 7.5 Monocytes (%) (Auto) 8.8 Eosinophils (%) (Auto) 0.2 Basophils (%) (Auto) 0.1 Neutrophils # (Auto) 9.2 Lymphocytes # (Auto) 0.8 Monocytes # (Auto) 1.0 Eosinophils # (Auto) 0.0 Basophils # (Auto) 0.0 CBC Comment DIFF FINAL Differential Comment Prothrombin Time 22.7 Prothromb Time International 2.0 Ratio Activated Partial 35.6 Thromboplast Time Sodium Level 137 Potassium Level 4.4 Chloride Level 100 Carbon Dioxide Level 28.8 Anion Gap 8 Blood Urea Nitrogen 37 Creatinine 1.22 Estimat Glomerular Filtration 60 Rate Random Glucose 127 Calcium Level 8.1 Cardiovascular: Regular Lungs: Clear Abdomen: Post-op tenderness Extremities: No edema A/P Assessment and Plan Impression: Postoperative hemorrhage is after being placed back on Coumadin and Lovenox. He required 2 units of blood transfused last night for a hemoglobin of 7.1 with a subsequent hemoglobin of 9.0. Overall he remains hemodynamically stable and his white blood count is returning to normal. With return of bowel function there does not appear to be any intra-abdominal catastrophe. Certainly his physical exam is not consistent with peritonitis. I had a long talk with Dr. Ayala today regarding his cardiac status. In view of his ProTime still being 22 today we have elected not to give him any further anticoagulants today. A repeat hemoglobin will be checked this evening and a full set of lab's will be obtained in the morning. I had a full discussion with the assessment and plan with the patient and his family. They understand the situation at this point. Surgery may still be an option although both Dr. Ayala and I would like to avoid it if at all possible. If his hemoglobin remains stable, we will be able to start him on regular anticoagulation tomorrow; if it is abnormal I will last Dr. Ayala to see him for further recommendations. Cesar Joiner MD Feb 02, 2017 19:04
[2017-02-02 20:26] LABS: AUTOMATED NEUTROPHIL # 7.5 TH/MM3 (1.8-7.7); BASOPHIL % 0.1 % (0.0-2.0); EOSINOPHIL % 0.2 % (0.0-4.0); HEMATOCRIT 27.5 % (39.0-51.0); HEMO FLAGS DIFF FINAL; LYMPHOCYTE # 0.8 TH/MM3 (1.0-4.8); MEAN CELL VOLUME 88.2 FL (80.0-100.0); MEAN CORPUSCULAR HEMOGLOBIN 30.3 PG (27.0-34.0); MEAN CORPUSCULAR HGB CONC 34.4 % (32.0-36.0); MONO % 8.7 % (0.0-8.0); PLATELET COUNT 251 TH/MM3 (150-450); RED BLOOD COUNT 3.12 MIL/MM3 (4.50-5.90); RED CELL DISTRIBUTION WIDTH 15.5 % (11.6-17.2); WHITE BLOOD COUNT 9.1 TH/MM3 (4.0-11.0)
[2017-02-03 00:10] VITALS: BP 110/61; PULSE 99; RESP 17; TEMP 98; O2SAT 92
[2017-02-03 04:10] VITALS: BP 105/61; PULSE 104; RESP 17; TEMP 98.3; O2SAT 93
[2017-02-03 08:00] VITALS: BP 109/62; PULSE 100; RESP 18; TEMP 98.4; O2SAT 93
[2017-02-03 08:44] LABS: AUTOMATED NEUTROPHIL # 5.6 TH/MM3 (1.8-7.7); BASOPHIL % 0.1 % (0.0-2.0); EOSINOPHIL % 0.4 % (0.0-4.0); HEMATOCRIT 27.9 % (39.0-51.0); HEMO FLAGS DIFF FINAL; LYMPHOCYTE # 0.7 TH/MM3 (1.0-4.8); MEAN CELL VOLUME 89.2 FL (80.0-100.0); MEAN CORPUSCULAR HEMOGLOBIN 30.1 PG (27.0-34.0); MEAN CORPUSCULAR HGB CONC 33.7 % (32.0-36.0); MONO % 9.3 % (0.0-8.0); NEUT % 80.2 % (16.0-70.0); PLATELET COUNT 220 TH/MM3 (150-450); RED BLOOD COUNT 3.13 MIL/MM3 (4.50-5.90); RED CELL DISTRIBUTION WIDTH 15.4 % (11.6-17.2); WHITE BLOOD COUNT 6.9 TH/MM3 (4.0-11.0)
[2017-02-03 08:48] LABS: APTT (PATIENT) 34.6 SEC (24.3-30.1); INTERNATIONAL NORMALIZED RATIO 1.7 RATIO; PROTHROMBIN TIME - PATIENT 18.8 SEC (9.8-11.6)
[2017-02-03] MEDS: FINASTERIDE 5 MG TAB PO SCH (08:56)
[2017-02-03] MEDS: LISINOPRIL 10 MG TAB PO SCH (08:56)
[2017-02-03] MEDS: ONDANSETRON HCL 4 MG/2 ML VIAL IV PUSH PRN ×2 (08:56→16:57)
[2017-02-03] MEDS: DOXAZOSIN MESYLATE 4 MG TAB PO SCH (08:56)
[2017-02-03] MEDS: BISACODYL 10 MG SUPP RECTAL SCH (08:56)
[2017-02-03 09:03] LABS: BICARBONATE 36.7 MEQ/L (21.0-32.0); POTASSIUM 3.9 MEQ/L (3.5-5.1)
[2017-02-03] MEDS: HYDROmorphone HCL PF 1 MG/ML VIAL IV PUSH PRN ×2 (11:54→20:23)
[2017-02-03 12:00] VITALS: BP 105/57; PULSE 100; RESP 18; TEMP 96.7; O2SAT 94
--- NOTE | 2017-02-03 15:34 | HHI.PR ---
Subjective Subjective Notes Overall feels slightly better. He continues to pass flatus and have small bowel movements. He states the pain is somewhat less and is requiring less analgesics. He has not been out of bed very much. Objective Vitals/I&O Vital Signs Date Time Temp Pulse Resp B/P Pulse Ox O2 Delivery O2 Flow Rate FiO2 02/03/17 12:00 96.7 100 18 105/57 94 02/03/17 09:00 Room Air Labs Laboratory Tests Test 02/01/17 02/02/17 02/02/17 02/02/17 17:50 00:08 10:46 19:50 White Blood Count 13.4 TH/MM3 11.1 TH/MM3 9.1 TH/MM3 Red Blood Count 2.40 MIL/MM3 3.00 MIL/MM3 3.12 MIL/MM3 Hemoglobin 7.1 GM/DL 9.0 GM/DL 9.5 GM/DL Hematocrit 21.8 % 26.6 % 27.5 % Mean Corpuscular Volume 91.2 FL 88.7 FL 88.2 FL Mean Corpuscular Hemoglobin 29.8 PG 29.9 PG 30.3 PG Mean Corpuscular Hemoglobin 32.7 % 33.7 % 34.4 % Concent Red Cell Distribution Width 15.4 % 15.4 % 15.5 % Platelet Count 279 TH/MM3 229 TH/MM3 251 TH/MM3 Mean Platelet Volume 7.2 FL 6.9 FL 7.1 FL Neutrophils (%) (Auto) 82.2 % 83.4 % 82.0 % Lymphocytes (%) (Auto) 8.3 % 7.5 % 9.0 % Monocytes (%) (Auto) 9.2 % 8.8 % 8.7 % Eosinophils (%) (Auto) 0.1 % 0.2 % 0.2 % Basophils (%) (Auto) 0.2 % 0.1 % 0.1 % Neutrophils # (Auto) 11.0 TH/MM3 9.2 TH/MM3 7.5 TH/MM3 Lymphocytes # (Auto) 1.1 TH/MM3 0.8 TH/MM3 0.8 TH/MM3 Monocytes # (Auto) 1.2 TH/MM3 1.0 TH/MM3 0.8 TH/MM3 Eosinophils # (Auto) 0.0 TH/MM3 0.0 TH/MM3 0.0 TH/MM3 Basophils # (Auto) 0.0 TH/MM3 0.0 TH/MM3 0.0 TH/MM3 CBC Comment DIFF FINAL DIFF FINAL DIFF FINAL Differential Comment Blood Type O POSITIVE Crossmatch Leukocyte-Reduced Red Blood Cells Blood Bank Comment Prothrombin Time 22.7 SEC Prothromb Time International 2.0 RATIO Ratio Activated Partial 35.6 SEC Thromboplast Time Sodium Level 137 MEQ/L Potassium Level 4.4 MEQ/L Chloride Level 100 MEQ/L Carbon Dioxide Level 28.8 MEQ/L Anion Gap 8 MEQ/L Blood Urea Nitrogen 37 MG/DL Creatinine 1.22 MG/DL Estimat Glomerular Filtration 60 ML/MIN Rate Random Glucose 127 MG/DL Calcium Level 8.1 MG/DL Test 02/03/17 08:08 White Blood Count 6.9 TH/MM3 Red Blood Count 3.13 MIL/MM3 Hemoglobin 9.4 GM/DL Hematocrit 27.9 % Mean Corpuscular Volume 89.2 FL Mean Corpuscular Hemoglobin 30.1 PG Mean Corpuscular Hemoglobin 33.7 % Concent Red Cell Distribution Width 15.4 % Platelet Count 220 TH/MM3 Mean Platelet Volume 6.9 FL Neutrophils (%) (Auto) 80.2 % Lymphocytes (%) (Auto) 10.0 % Monocytes (%) (Auto) 9.3 % Eosinophils (%) (Auto) 0.4 % Basophils (%) (Auto) 0.1 % Neutrophils # (Auto) 5.6 TH/MM3 Lymphocytes # (Auto) 0.7 TH/MM3 Monocytes # (Auto) 0.6 TH/MM3 Eosinophils # (Auto) 0.0 TH/MM3 Basophils # (Auto) 0.0 TH/MM3 CBC Comment DIFF FINAL Differential Comment Prothrombin Time 18.8 SEC Prothromb Time International 1.7 RATIO Ratio Activated Partial 34.6 SEC Thromboplast Time Sodium Level 140 MEQ/L Potassium Level 3.9 MEQ/L Chloride Level 98 MEQ/L Carbon Dioxide Level 36.7 MEQ/L Anion Gap 5 MEQ/L Blood Urea Nitrogen 31 MG/DL Creatinine 1.26 MG/DL Estimat Glomerular Filtration 57 ML/MIN Rate Random Glucose 141 MG/DL Calcium Level 8.4 MG/DL Laboratory Tests Test 02/02/17 02/03/17 19:50 08:08 White Blood Count 9.1 6.9 Red Blood Count 3.12 3.13 Hemoglobin 9.5 9.4 Hematocrit 27.5 27.9 Mean Corpuscular Volume 88.2 89.2 Mean Corpuscular Hemoglobin 30.3 30.1 Mean Corpuscular Hemoglobin 34.4 33.7 Concent Red Cell Distribution Width 15.5 15.4 Platelet Count 251 220 Mean Platelet Volume 7.1 6.9 Neutrophils (%) (Auto) 82.0 80.2 Lymphocytes (%) (Auto) 9.0 10.0 Monocytes (%) (Auto) 8.7 9.3 Eosinophils (%) (Auto) 0.2 0.4 Basophils (%) (Auto) 0.1 0.1 Neutrophils # (Auto) 7.5 5.6 Lymphocytes # (Auto) 0.8 0.7 Monocytes # (Auto) 0.8 0.6 Eosinophils # (Auto) 0.0 0.0 Basophils # (Auto) 0.0 0.0 CBC Comment DIFF FINAL DIFF FINAL Differential Comment Prothrombin Time 18.8 Prothromb Time International 1.7 Ratio Activated Partial 34.6 Thromboplast Time Sodium Level 140 Potassium Level 3.9 Chloride Level 98 Carbon Dioxide Level 36.7 Anion Gap 5 Blood Urea Nitrogen 31 Creatinine 1.26 Estimat Glomerular Filtration 57 Rate Random Glucose 141 Calcium Level 8.4 Cardiovascular: Regular Lungs: Clear Abdomen: Post-op tenderness A/P Assessment and Plan Impression: Postoperative hemorrhage is after being placed back on Coumadin and Lovenox. He is stable and improving. His hemoglobin was 9.0 after transfusion yesterday morning and 9.5 last night; 9.4 this morning. His PT was still greater than 18 this morning. Overall he continues to do well. Plan: I discussed the situation with Dr. Ayala again this morning and have restarted his Coumadin as of today. He does not need bridging Lovenox at this point. I have ordered a CBC, BMP, and coag profile for the morning. If there are any problems Dr. Ayala is aware of his presence. I've asked that the Anderson catheter be removed tomorrow morning. He has significant prostate disease and may need to have a catheter replaced. Dr. Dennison is his urologist and I informed the patient that he may well require a Anderson catheter to go home if he has persistent problems and voiding. I will order the NG tube to be clamped today and hopefully can come out tomorrow and we can advance from clear liquids to full liquids then. I told him that he might be able to go home Thursday or Thursday and have encouraged him to increase his activity. Cesar Joiner MD Feb 03, 2017 15:33
[2017-02-03 15:48] VITALS: BP 103/60; PULSE 95; RESP 17; TEMP 96.9; O2SAT 92
[2017-02-03] MEDS: WARFARIN SOD 7.5 MG TAB PO SCH (16:27)
[2017-02-03 19:38] VITALS: BP 116/63; PULSE 98; RESP 18; TEMP 98.1; O2SAT 92
[2017-02-04] VITALS (8 sets, daily range): BP systolic 103–124; BP diastolic 56–70; PULSE 67–119; RESP 16–19; TEMP 96.1–97.7; O2SAT 92–98
[2017-02-04 07:16] LABS: AUTOMATED NEUTROPHIL # 7.2 TH/MM3 (1.8-7.7); BASOPHIL % 0.1 % (0.0-2.0); EOSINOPHIL # 0.1 TH/MM3 (0-0.4); EOSINOPHIL % 0.9 % (0.0-4.0); HEMATOCRIT 29.7 % (39.0-51.0); HEMO FLAGS DIFF FINAL; LYMPH % 9.3 % (9.0-44.0); LYMPHOCYTE # 0.8 TH/MM3 (1.0-4.8); MEAN CORPUSCULAR HEMOGLOBIN 30.6 PG (27.0-34.0); MEAN CORPUSCULAR HGB CONC 34.3 % (32.0-36.0); MONO % 8.2 % (0.0-8.0); NEUT % 81.5 % (16.0-70.0); PLATELET COUNT 270 TH/MM3 (150-450); RED BLOOD COUNT 3.34 MIL/MM3 (4.50-5.90); RED CELL DISTRIBUTION WIDTH 15.2 % (11.6-17.2); WHITE BLOOD COUNT 8.9 TH/MM3 (4.0-11.0)
[2017-02-04 07:17] LABS: APTT (PATIENT) 35.3 SEC (24.3-30.1); INTERNATIONAL NORMALIZED RATIO 1.8 RATIO; PROTHROMBIN TIME - PATIENT 19.9 SEC (9.8-11.6)
[2017-02-04 07:34] LABS: BICARBONATE 35.1 MEQ/L (21.0-32.0); POTASSIUM 3.7 MEQ/L (3.5-5.1)
[2017-02-04] MEDS: FINASTERIDE 5 MG TAB PO SCH (09:06)
[2017-02-04] MEDS: D5-1/2 NS + KCL 20 MEQ INJ 1,000 ML IV SCH ×4 (09:06→22:26)
[2017-02-04] MEDS: BISACODYL 10 MG SUPP RECTAL SCH (09:07)
[2017-02-04] MEDS: LISINOPRIL 10 MG TAB PO SCH (09:07)
[2017-02-04] MEDS: HYDROmorphone HCL PF 1 MG/ML VIAL IV PUSH PRN ×3 (09:07→22:39)
[2017-02-04] MEDS: DOXAZOSIN MESYLATE 4 MG TAB PO SCH (09:07)
[2017-02-04] MEDS: SCOPOLAMINE 1.5 MG PATCH T-DERMAL SCH (09:08)
[2017-02-04] MEDS: REMOVE OLD SCOPOLAMINE PATCH T-DERMAL SCH (09:08)
--- NOTE | 2017-02-04 13:14 | HHI.PR ---
Subjective Subjective Notes Persistent high output from NGT. Had a BM. Very concerned about ramsey coming out. Objective Vitals/I&O Vital Signs Date Time Temp Pulse Resp B/P Pulse Ox O2 Delivery O2 Flow Rate FiO2 02/04/17 08:00 Room Air 02/04/17 07:35 96.1 100 17 124/68 97 Labs Laboratory Tests Test 02/04/17 06:21 White Blood Count 8.9 Red Blood Count 3.34 Hemoglobin 10.2 Hematocrit 29.7 Mean Corpuscular Volume 89.0 Mean Corpuscular Hemoglobin 30.6 Mean Corpuscular Hemoglobin 34.3 Concent Red Cell Distribution Width 15.2 Platelet Count 270 Mean Platelet Volume 6.9 Neutrophils (%) (Auto) 81.5 Lymphocytes (%) (Auto) 9.3 Monocytes (%) (Auto) 8.2 Eosinophils (%) (Auto) 0.9 Basophils (%) (Auto) 0.1 Neutrophils # (Auto) 7.2 Lymphocytes # (Auto) 0.8 Monocytes # (Auto) 0.7 Eosinophils # (Auto) 0.1 Basophils # (Auto) 0.0 CBC Comment DIFF FINAL Differential Comment Prothrombin Time 19.9 Prothromb Time International 1.8 Ratio Activated Partial 35.3 Thromboplast Time Sodium Level 139 Potassium Level 3.7 Chloride Level 99 Carbon Dioxide Level 35.1 Anion Gap 5 Blood Urea Nitrogen 30 Creatinine 1.17 Estimat Glomerular Filtration 63 Rate Random Glucose 120 Calcium Level 8.7 Narrative Exam Distended, moderate abd ttp NG brownish output 500cc this am ramsey clear urine A/P Assessment and Plan 66 yo M s/p lap VHR with post op bleeding/intraabdominal hematoma. He has an ileus with persistent high output from ng. H/o prostate surgery and bph; the ramsey was not removed this am and he is very worried about it coming out. CBC stable. Cont NG to LIS. Encourage OOB. Cont ramsey. Clears. Await resolution of ileus. Adalid Luong MD Feb 04, 2017 13:14
[2017-02-04] MEDS: METOCLOPRAMIDE HCL 10 MG/2 ML VIAL IV SCH ×2 (13:55→22:26)
[2017-02-04] MEDS: WARFARIN SOD 7.5 MG TAB PO SCH (17:18)
[2017-02-05] VITALS (8 sets, daily range): BP systolic 91–114; BP diastolic 57–62; PULSE 72–101; RESP 16–18; TEMP 96–98.7; O2SAT 94–99
[2017-02-05] MEDS: METOCLOPRAMIDE HCL 10 MG/2 ML VIAL IV SCH ×4 (02:15→20:57)
[2017-02-05] MEDS: D5-1/2 NS + KCL 20 MEQ INJ 1,000 ML IV SCH ×3 (05:15→21:23)
[2017-02-05] MEDS: BISACODYL 10 MG SUPP RECTAL SCH (09:00)
[2017-02-05] MEDS: FINASTERIDE 5 MG TAB PO SCH (09:08)
[2017-02-05] MEDS: LISINOPRIL 10 MG TAB PO SCH (09:08)
[2017-02-05] MEDS: DOXAZOSIN MESYLATE 4 MG TAB PO SCH (09:09)
--- NOTE | 2017-02-05 09:24 | HHI.PR ---
Subjective Subjective Notes He is uncomfortable still. Passing flatus. Had small bm yesterday. NG output basically same as his oral input. Objective Vitals/I&O Vital Signs Date Time Temp Pulse Resp B/P Pulse Ox O2 Delivery O2 Flow Rate FiO2 02/05/17 03:45 97.0 88 17 111/58 96 02/04/17 08:00 Room Air Narrative Exam Distended, moderate abd ttp NG brownish output 1800cc/24h (same as oral intake) ramsey clear urine A/P Assessment and Plan 66 yo M s/p lap VHR with post op bleeding/intraabdominal hematoma. H/o mechanical valve- on coumadin, check inr in am. Clamp ng- remove in 6h if residuals low. Encourage OOB. Cont ramsey. Clears. Await resolution of ileus. Adalid Luong MD Feb 05, 2017 09:24
[2017-02-05] MEDS: PANTOPRAZOLE SOD 40 MG DELAYED RELEASE TAB PO SCH (09:30)
[2017-02-05] MEDS: ACETAMINOPHEN 325 MG TAB PO PRN (09:30)
[2017-02-05] MEDS: WARFARIN SOD 7.5 MG TAB PO SCH (16:00)
--- NOTE | 2017-02-05 16:33 | RADRPT ---
EXAM DATE/TIME: 02/05/2017 15:44 [facility] COMPARISON: CT ABDOMEN & PELVIS W CONTRAST, January 31, 2017, 15:37. INDICATIONS : Evaluate NG tube placement MEDICAL HISTORY : Hernia, inguenal SURGICAL HISTORY : Inguinal hernia repair. ENCOUNTER: Initial ACUITY: 4 - 6 days PAIN SCORE: 0/10 LOCATION: Abdomen FINDINGS: Examination of the abdomen demonstrates NG tube projecting over the expected location of the gastric lumen. Multiple dilated small bowel loops suggest small bowel obstruction. No pneumoperitoneum on chopra ited image provided. CONCLUSION: 1. NG tube with the tip projecting over the expected location of the gastric lumen. 2. Plain film findings characteristic of small bowel obstruction. George Godoy MD on February 05, 2017 at 16:29 Board Certified Radiologist. This report was verified electronically.
[2017-02-05 19:38] LABS: INTERNATIONAL NORMALIZED RATIO 2.7 RATIO; PROTHROMBIN TIME - PATIENT 30.9 SEC (9.8-11.6)
[2017-02-05] MEDS: ATORVASTATIN 40 MG TAB PO SCH (20:58)
[2017-02-06] VITALS (7 sets, daily range): BP systolic 98–130; BP diastolic 59–64; PULSE 91–121; RESP 16–18; TEMP 96.2–98.5; O2SAT 94–97
[2017-02-06] MEDS: METOCLOPRAMIDE HCL 10 MG/2 ML VIAL IV SCH ×4 (02:59→20:14)
[2017-02-06 05:13] LABS: HEMATOCRIT 30.4 % (39.0-51.0); MEAN CORPUSCULAR HEMOGLOBIN 30.1 PG (27.0-34.0); MEAN CORPUSCULAR HGB CONC 33.5 % (32.0-36.0); PLATELET COUNT 234 TH/MM3 (150-450); RED BLOOD COUNT 3.38 MIL/MM3 (4.50-5.90); RED CELL DISTRIBUTION WIDTH 15.2 % (11.6-17.2); REVIEW FLAG FINAL; WHITE BLOOD COUNT 10.1 TH/MM3 (4.0-11.0)
[2017-02-06] MEDS: D5-1/2 NS + KCL 20 MEQ INJ 1,000 ML IV SCH ×4 (05:15→20:18)
[2017-02-06 05:23] LABS: INTERNATIONAL NORMALIZED RATIO 2.7 RATIO; PROTHROMBIN TIME - PATIENT 30.8 SEC (9.8-11.6)
[2017-02-06] MEDS: BISACODYL 10 MG SUPP RECTAL SCH (09:00)
[2017-02-06] MEDS: LISINOPRIL 10 MG TAB PO SCH (09:04)
[2017-02-06] MEDS: SODIUM CHLORIDE 0.9% FLUSH 10 ML FLUSH IV FLUSH PRN (09:04)
[2017-02-06] MEDS: PANTOPRAZOLE SOD 40 MG DELAYED RELEASE TAB PO SCH (09:05)
[2017-02-06] MEDS: FINASTERIDE 5 MG TAB PO SCH (09:05)
[2017-02-06] MEDS: DOXAZOSIN MESYLATE 4 MG TAB PO SCH (09:05)
--- NOTE | 2017-02-06 10:47 | HHI.PR ---
Subjective Subjective Notes He still has fairly high output from ngt and it is greenish. He is having small amts of flatus and had a small solid bm. Urine is kaity colored, not pink. Objective Vitals/I&O Vital Signs Date Time Temp Pulse Resp B/P Pulse Ox O2 Delivery O2 Flow Rate FiO2 02/06/17 04:00 98.0 100 16 98/62 96 02/06/17 04:00 Room Air Labs Laboratory Tests Test 02/05/17 02/06/17 18:59 04:42 Prothrombin Time 30.9 30.8 Prothromb Time International 2.7 2.7 Ratio White Blood Count 10.1 Red Blood Count 3.38 Hemoglobin 10.2 Hematocrit 30.4 Mean Corpuscular Volume 90.0 Mean Corpuscular Hemoglobin 30.1 Mean Corpuscular Hemoglobin 33.5 Concent Red Cell Distribution Width 15.2 Platelet Count 234 Mean Platelet Volume 6.9 Narrative Exam Soft, distended, moderate abd ttp NG brownish output 1800cc/24h ramsey kaity urine A/P Assessment and Plan 66 yo M s/p lap VHR with post op bleeding/intraabdominal hematoma. BP a little low and urine kaity- bolus 500cc H/o mechanical valve- on coumadin. INR 2.7. No current gross hematuria. Recheck inr in am. Cont ngt to LIS. Ok to clamp to ambulate. Encourage OOB. Cont ramsey. Appreciate Dr. Bejarano in consult. Clears. Await resolution of ileus. D/w patient and his . Ag,Adalid PHELPS Feb 06, 2017 10:47
[2017-02-06] MEDS ORDERED: SODIUM CHLORID 0.9% 500 ML INJ 500 ML IV ONE (11:00)
[2017-02-06] MEDS: ACETAMINOPHEN 325 MG TAB PO PRN ×2 (12:08→18:18)
[2017-02-06] MEDS: WARFARIN SOD 7.5 MG TAB PO SCH (14:47)
--- NOTE | 2017-02-06 17:41 | MB ---
cc: CHRISTIAN CALLAHAN MD DATE OF CONSULTATION: 02/06/2017 DATE OF ADMISSION: 02/01/2017 REASON FOR CONSULTATION: 1. Gross hematuria. 2. History of BPH status post TURP HISTORY OF PRESENT ILLNESS The patient is a 56-year-old male who underwent laparoscopic repair of ventral incisional hernia x2 on January 27. However he start experiencing nausea and vomiting and presented to the emergency room where a workup was done which showed a possible bowel obstruction. He is subsequently admitted for further evaluation. However, the patient has significant cardiac history and takes Coumadin for aortic valve replacement. Yesterday he noticed a small amount of blood in his urine, urology was consulted. He is a known patient Dr. Larson who has treated for BPH in the past. He had a TURP done years ago which help resolve his urinary symptoms. However, he has had multiple bouts of hematuria since the surgery, all have been related to his coumadin use or his aortic valve replacement. Prior to admission he denies any urinary complaints, he says that he has a strong stream and only gets up one to two times at night. He denies any dysuria or incontinence. Denies history of kidney stones or urinary tract infections. He does take Proscar 5 mg as well as Cardura 4 mg daily. His hematuria is currently resolved as of today. He denies fevers, chills or flank pain at this time his nausea has also resolved. PHYSICAL EXAMINATION: VITAL SIGNS: Temperature is 96.2, Pulse is 121, respiratory rate 16, BP 130/60, oxygen saturation 97% on room air. IN GENERAL: He is alert and oriented x3. No apparent distress, appears stated age. HEAD, EYES, EARS, NOSE, AND THROAT: Head: Normocephalic, atraumatic. NECK: The neck is supple. Trachea is midline. No JVD. LUNGS: The lungs are clear to auscultation bilaterally, no wheezes, rales or rhonchi. HEART: Slightly tachycardic, no murmurs, gallops or rubs. ABDOMEN: Soft, mild distension, nontender. GENITOURINARY: No bilaterally. Penis is circumcised. Testes are bilaterally normal size consistent without mass. RECTUM: Rectal exam not indicated at time. EXTREMITIES: Nontender, no clubbing, 1+ pitting edema. No clubbing or cyanosis. PSYCHIATRIC: Normal affect. SKIN: No ulcers or rashes. LABORATORY FINDINGS: Labs show a white count 10.1. Hemoglobin 10.2, hematocrit 30.4. Platelet count 234 Sodium 139 potassium 3.7, chloride 99, bicarb 35.1, BUN 30, creatinine 1.17, calcium 8.7. His urine showed trace blood. His most recent INR was 2.7. IMAGING STUDIES The CT of the pelvis with contrast noted no evidence of hydronephrosis, stones or renal masses, nondistended bladder with catheter in place. ASSESSMENT/PLAN The patient is a 56-year-old male with history BPH status post TURP who was admitted following a lap eventually incisional hernia x2 with a hematoma with gross hematuria. PLAN: Recommend conservative management at this time bloody urine, likely combination from his Anderson catheter and his anticoagulation. We recommend continuing his Proscar 5 mg daily as well as Cardura 4 mg daily. We will continue Anderson catheter until his obstruction resolves. However, ideally he should go home with his Anderson catheter and can be void trial as an outpatient with Dr. Larson. Thank you for this consult. Please call if any questions, available as needed. Christian Callahan MD EMArnold/kerline /12:33 PM /5:25 PM
[2017-02-06] MEDS: ATORVASTATIN 40 MG TAB PO SCH (20:14)
[2017-02-07] VITALS (7 sets, daily range): BP systolic 101–120; BP diastolic 61–65; PULSE 91–109; RESP 16–18; TEMP 95.5–99.1; O2SAT 93–97
[2017-02-07] MEDS: METOCLOPRAMIDE HCL 10 MG/2 ML VIAL IV SCH ×4 (01:39→21:39)
[2017-02-07 05:58] LABS: BICARBONATE 25.6 MEQ/L (21.0-32.0); POTASSIUM 4.4 MEQ/L (3.5-5.1)
[2017-02-07] MEDS: SODIUM CHLORIDE 0.9% FLUSH 10 ML FLUSH IV FLUSH PRN (08:05)
[2017-02-07] MEDS: FINASTERIDE 5 MG TAB PO SCH (08:07)
[2017-02-07] MEDS: DOXAZOSIN MESYLATE 4 MG TAB PO SCH (08:08)
[2017-02-07] MEDS: PANTOPRAZOLE SOD 40 MG DELAYED RELEASE TAB PO SCH (08:08)
[2017-02-07] MEDS: LISINOPRIL 10 MG TAB PO SCH (08:08)
[2017-02-07] MEDS: BISACODYL 10 MG SUPP RECTAL SCH (08:12)
[2017-02-07] MEDS: SCOPOLAMINE 1.5 MG PATCH T-DERMAL SCH (10:00)
[2017-02-07] MEDS: REMOVE OLD SCOPOLAMINE PATCH T-DERMAL SCH (10:00)
--- NOTE | 2017-02-07 12:38 | HHI.PR ---
Subjective Subjective Notes pos BM denies abd pain Objective Vitals/I&O Vital Signs Date Time Temp Pulse Resp B/P Pulse Ox O2 Delivery O2 Flow Rate FiO2 02/07/17 08:00 98.1 99 18 120/63 93 02/07/17 07:00 Room Air Labs Laboratory Tests Test 02/07/17 05:09 Sodium Level 138 Potassium Level 4.4 Chloride Level 106 Carbon Dioxide Level 25.6 Anion Gap 6 Blood Urea Nitrogen 18 Creatinine 0.99 Estimat Glomerular Filtration 76 Rate Random Glucose 130 Calcium Level 7.9 Abdomen: Non-tender Narrative Exam pos distension Wound Wound : Wound Location: Abdomen Appearance: Clean & Dry A/P Assessment and Plan pt with Ileus on clears will clamp ngt alt with suction ambulate in hallway Charlie Cooper MD Feb 07, 2017 12:38
[2017-02-07] MEDS: D5-1/2 NS + KCL 20 MEQ INJ 1,000 ML IV SCH ×2 (13:52→21:38)
[2017-02-07] MEDS: WARFARIN SOD 7.5 MG TAB PO SCH (16:53)
[2017-02-07] MEDS: ATORVASTATIN 40 MG TAB PO SCH (21:38)
[2017-02-08] VITALS (7 sets, daily range): BP systolic 93–116; BP diastolic 51–68; PULSE 88–108; RESP 17–18; TEMP 96.1–98.3; O2SAT 95–99
[2017-02-08] MEDS: D5-1/2 NS + KCL 20 MEQ INJ 1,000 ML IV SCH ×3 (02:18→17:36)
[2017-02-08] MEDS: METOCLOPRAMIDE HCL 10 MG/2 ML VIAL IV SCH ×4 (02:18→20:25)
[2017-02-08 06:27] LABS: APTT (PATIENT) 40.3 SEC (24.3-30.1)
[2017-02-08 06:35] LABS: BICARBONATE 25.6 MEQ/L (21.0-32.0); MAGNESIUM 2.1 MG/DL (1.5-2.5); POTASSIUM 4.3 MEQ/L (3.5-5.1)
[2017-02-08] MEDS: BISACODYL 10 MG SUPP RECTAL SCH (09:00)
[2017-02-08] MEDS: DOXAZOSIN MESYLATE 4 MG TAB PO SCH (09:14)
[2017-02-08] MEDS: PANTOPRAZOLE SOD 40 MG DELAYED RELEASE TAB PO SCH (09:14)
[2017-02-08] MEDS: LISINOPRIL 10 MG TAB PO SCH (09:15)
[2017-02-08] MEDS: FINASTERIDE 5 MG TAB PO SCH (09:15)
--- NOTE | 2017-02-08 13:58 | HHI.PR ---
Subjective Subjective Notes liquid BM cont with high output from NGT Objective Vitals/I&O Vital Signs Date Time Temp Pulse Resp B/P Pulse Ox O2 Delivery O2 Flow Rate FiO2 02/08/17 08:00 98.0 92 18 98/59 95 02/07/17 18:41 Room Air Labs Laboratory Tests Test 02/08/17 05:51 Activated Partial 40.3 Thromboplast Time Sodium Level 136 Potassium Level 4.3 Chloride Level 105 Carbon Dioxide Level 25.6 Anion Gap 5 Blood Urea Nitrogen 15 Creatinine 0.94 Estimat Glomerular Filtration 81 Rate Random Glucose 120 Calcium Level 7.9 Magnesium Level 2.1 Extremities: Perfused Narrative Exam pos distension A/P Assessment and Plan pt with Ileus on clears will clamp ngt alt with suction ambulate in hallway QID place PIC line start TPN Charlie Santos MD Feb 08, 2017 13:58
[2017-02-08 15:12] LABS: INTERNATIONAL NORMALIZED RATIO 3.9 RATIO; PROTHROMBIN TIME - PATIENT 45.2 SEC (9.8-11.6)
[2017-02-08] MEDS: WARFARIN SOD 7.5 MG TAB PO SCH (16:00)
[2017-02-08] MEDS ORDERED: FOLIC ACID IV-CENTRAL SCH ×5 (20:00)
[2017-02-08] MEDS ORDERED: FAT EMULSION 20% INJ 250 ML (Daily over 8 hours) IV-CENTRAL SCH (20:00)
[2017-02-08] MEDS ORDERED: FAMOTIDINE IV-CENTRAL SCH ×5 (20:00)
[2017-02-08] MEDS ORDERED: MULTIVITAMIN IV-CENTRAL SCH ×5 (20:00)
[2017-02-08] MEDS ORDERED: [UNRECOGNIZED DRUG - OTHER] IV-CENTRAL SCH ×5 (20:00)
[2017-02-08] MEDS: ATORVASTATIN 40 MG TAB PO SCH (22:28)
[2017-02-09] VITALS: BP 111/65; PULSE 87; RESP 17; TEMP 97.1; O2SAT 97
[2017-02-09] MEDS: METOCLOPRAMIDE HCL 10 MG/2 ML VIAL IV SCH ×4 (02:00→19:51)
[2017-02-09] MEDS: D5-1/2 NS + KCL 20 MEQ INJ 1,000 ML IV SCH ×3 (02:50→19:52)
[2017-02-09 03:45] VITALS: BP 119/61; PULSE 92; RESP 17; TEMP 97; O2SAT 97
[2017-02-09 06:35] LABS: AUTOMATED NEUTROPHIL # 7.5 TH/MM3 (1.8-7.7); BASOPHIL % 0.4 % (0.0-2.0); EOSINOPHIL # 0.3 TH/MM3 (0-0.4); EOSINOPHIL % 3.1 % (0.0-4.0); HEMATOCRIT 31.5 % (39.0-51.0); HEMO FLAGS DIFF FINAL; LYMPH % 11.2 % (9.0-44.0); LYMPHOCYTE # 1.1 TH/MM3 (1.0-4.8); MEAN CELL VOLUME 89.8 FL (80.0-100.0); MEAN CORPUSCULAR HEMOGLOBIN 29.6 PG (27.0-34.0); MONO % 6.4 % (0.0-8.0); NEUT % 78.9 % (16.0-70.0); PLATELET COUNT 232 TH/MM3 (150-450); RED CELL DISTRIBUTION WIDTH 15.1 % (11.6-17.2); WHITE BLOOD COUNT 9.6 TH/MM3 (4.0-11.0)
[2017-02-09 06:38] LABS: INTERNATIONAL NORMALIZED RATIO 3.7 RATIO; PROTHROMBIN TIME - PATIENT 42.8 SEC (9.8-11.6)
[2017-02-09 06:49] LABS: BICARBONATE 24.7 MEQ/L (21.0-32.0); POTASSIUM 4.7 MEQ/L (3.5-5.1)
[2017-02-09 08:00] VITALS: BP 94/58; PULSE 106; RESP 16; TEMP 96.1; O2SAT 96
[2017-02-09] MEDS: LISINOPRIL 10 MG TAB PO SCH (09:00)
[2017-02-09] MEDS: BISACODYL 10 MG SUPP RECTAL SCH (09:00)
--- NOTE | 2017-02-09 09:06 | RADRPT ---
EXAM DATE/TIME: 02/09/2017 08:51 [facility] COMPARISON: ABDOMEN SINGLE VIEW, February 05, 2017, 15:44. INDICATIONS : Abdominal pain. Possible ileus. MEDICAL HISTORY : Hernia, inguinal. SURGICAL HISTORY : Inguinal hernia repair. ENCOUNTER: Subsequent ACUITY: 1 week PAIN SCORE: 10/10 LOCATION: Bilateral abdomen. FINDINGS: NG tube tip terminates in the proximal stomach. There are dilated loops of small bowel in left upper quadrant with air-fluid levels. This is not significantly changed. The findings are concerning for sm all bowel obstruction versus ileus. CONCLUSION: 1. No significant change has occurred. Juliano Amezcua MD on February 09, 2017 at 9:03 Board Certified Radiologist. This report was verified electronically.
[2017-02-09] MEDS: FINASTERIDE 5 MG TAB PO SCH (09:43)
[2017-02-09] MEDS: PANTOPRAZOLE SOD 40 MG DELAYED RELEASE TAB PO SCH (09:43)
[2017-02-09] MEDS: DOXAZOSIN MESYLATE 4 MG TAB PO SCH (09:43)
[2017-02-09 12:00] VITALS: BP 121/67; PULSE 89; RESP 16; TEMP 97.4; O2SAT 98
[2017-02-09] MEDS ORDERED: DIATRIZOATE MEGLUM/DIATRIZOATE SOD 9 ML CUP PO ONE (12:00)
--- NOTE | 2017-02-09 14:34 | HHI.PR ---
Subjective Subjective Notes NG output down some, but KUB shows persistent dilated loops. Having liquid stool. Anderson removed this am. Objective Vitals/I&O Vital Signs Date Time Temp Pulse Resp B/P Pulse Ox O2 Delivery O2 Flow Rate FiO2 02/09/17 08:00 96.1 106 16 94/58 96 02/07/17 18:41 Room Air Labs Laboratory Tests Test 02/08/17 02/09/17 14:35 05:27 Prothrombin Time 45.2 42.8 Prothromb Time International 3.9 3.7 Ratio White Blood Count 9.6 Red Blood Count 3.50 Hemoglobin 10.4 Hematocrit 31.5 Mean Corpuscular Volume 89.8 Mean Corpuscular Hemoglobin 29.6 Mean Corpuscular Hemoglobin 33.0 Concent Red Cell Distribution Width 15.1 Platelet Count 232 Mean Platelet Volume 7.0 Neutrophils (%) (Auto) 78.9 Lymphocytes (%) (Auto) 11.2 Monocytes (%) (Auto) 6.4 Eosinophils (%) (Auto) 3.1 Basophils (%) (Auto) 0.4 Neutrophils # (Auto) 7.5 Lymphocytes # (Auto) 1.1 Monocytes # (Auto) 0.6 Eosinophils # (Auto) 0.3 Basophils # (Auto) 0.0 CBC Comment DIFF FINAL Differential Comment Sodium Level 139 Potassium Level 4.7 Chloride Level 106 Carbon Dioxide Level 24.7 Anion Gap 8 Blood Urea Nitrogen 12 Creatinine 0.93 Estimat Glomerular Filtration 82 Rate Random Glucose 117 Calcium Level 8.4 Narrative Exam Soft, mild distention, moderate abd ttp, seroma in midline NG brownish output 500cc/24h A/P Assessment and Plan 66 yo M s/p lap VHR with post op bleeding/intraabdominal hematoma. H/o mechanical valve- on coumadin. INR 3.7. Awaiting PICC when INR<2.5. Recheck in am. Cont ngt to LIS. Ok to clamp to ambulate. Check CT a/p to eval for mechanical obstruction. Encourage OOB. Anderson removed. Clears. Await resolution of ileus. D/w patient and his . AgAdalid MD Feb 09, 2017 14:34
[2017-02-09] MEDS ORDERED: IOHEXOL 350 MG/ML 10 ML VIAL (for RAD DIAG) IV ONE (15:46)
[2017-02-09 16:00] VITALS: BP 110/65; PULSE 88; RESP 18; TEMP 98; O2SAT 98
--- NOTE | 2017-02-09 16:16 | RADRPT ---
EXAM DATE/TIME: 02/09/2017 15:32 [place] COMPARISON: CT ABDOMEN & PELVIS W CONTRAST, January 31, 2017, 15:37. INDICATIONS : Evaluate for obstruction. IV CONTRAST: 100 cc Omnipaque 350 (iohexol) IV ORAL CONTRAST: No oral contrast ingested. RADIATION DOSE: 11.48 CTDIvol (mGy) MEDICAL HISTORY : Hypertension. Cardiovascular disease Carcinoma, not otherwise specified. SURGICAL HISTORY : Hernia repair x 2. ENCOUNTER: Initial ACUITY: 1 day PAIN SCALE: 5/10 LOCATION: Bilateral abdomen. TECHNIQUE: Volumetric scanning of the abdomen and pelvis was performed. Using automated exposure control and ad justment of the mA and/or kV according to patient size, radiation dose was kept as low as reasonably achievable to obtain optimal diagnostic quality images. FINDINGS: LOWER LUNGS: Mild basilar atelectasis persists. LIVER: Homogeneous density without lesion. There is no dilation of the biliary tree. No calcified gallston es. SPLEEN: Normal size without lesion. PANCREAS: Within normal limits. KIDNEYS: Normal in size and shape. There is no mass, stone or hydronephrosis. ADRENAL GLANDS: Within normal limits. VASCULAR: There is no aortic aneurysm. BOWEL/MESENTERY: There is slightly improved nonspecific fluid and gaseous distention of bowel, mainly small bowel. The re is diverticular involvement of the colon. No evidence of transition point to suggest obstruction. Lobular mixed density mass process in the upper central abdomen adjacent to the gastric antrum is sim ilar with slight adjacent indurated changes. A moderate quantity of high density ascites is again not ed. The density of the fluid suggests complication by hemorrhage or cellular debris. ABDOMINAL WALL: Upper abdominal midline hernia again seen with contents of mixed density, interval resolution of inte rnal gas density. Tiny umbilical hernia containing mixed density contents. RETROPERITONEUM: There is no lymphadenopathy. BLADDER: Mildly distended with air present. Small left posterior bladder base diverticulum. REPRODUCTIVE: Moderate enlargement of the prostate with impression on the bladder base. INGUINAL: There is no lymphadenopathy or hernia. MUSCULOSKELETAL: Within normal limits for patient age. CONCLUSION: Slightly improved distention of small bowel. Nonspecific mass process in the upper anterior abdomen. High density ascites. Abdominal wall defects. Piero Nguyễn MD on February 09, 2017 at 15:55 Board Certified Radiologist. This report was verified electronically.
[2017-02-09 19:26] VITALS: BP 113/64; PULSE 93; RESP 19; TEMP 98; O2SAT 99
[2017-02-09] MEDS: ATORVASTATIN 40 MG TAB PO SCH (19:51)
[2017-02-10] VITALS (7 sets, daily range): BP systolic 95–116; BP diastolic 60–66; PULSE 84–100; RESP 14–19; TEMP 96.9–98.7; O2SAT 95–99
[2017-02-10] MEDS: METOCLOPRAMIDE HCL 10 MG/2 ML VIAL IV SCH ×4 (01:33→19:46)
[2017-02-10] MEDS: D5-1/2 NS + KCL 20 MEQ INJ 1,000 ML IV SCH ×3 (05:15→21:45)
[2017-02-10 08:06] LABS: INTERNATIONAL NORMALIZED RATIO 3.2 RATIO; PROTHROMBIN TIME - PATIENT 36.8 SEC (9.8-11.6)
[2017-02-10] MEDS: BISACODYL 10 MG SUPP RECTAL SCH (09:00)
[2017-02-10] MEDS: REMOVE OLD SCOPOLAMINE PATCH T-DERMAL SCH (09:17)
[2017-02-10] MEDS: LISINOPRIL 10 MG TAB PO SCH (09:17)
[2017-02-10] MEDS: FINASTERIDE 5 MG TAB PO SCH (09:17)
[2017-02-10] MEDS: PANTOPRAZOLE SOD 40 MG DELAYED RELEASE TAB PO SCH (09:17)
[2017-02-10] MEDS: DOXAZOSIN MESYLATE 4 MG TAB PO SCH (09:17)
[2017-02-10] MEDS: SCOPOLAMINE 1.5 MG PATCH T-DERMAL SCH (09:18)
[2017-02-10] MEDS: SODIUM CHLORIDE 0.9% FLUSH 10 ML FLUSH IV FLUSH PRN ×2 (10:57→13:04)
[2017-02-10] MEDS: WARFARIN SOD 5 MG TAB PO SCH (16:39)
--- NOTE | 2017-02-10 18:33 | HHI.PR ---
Subjective Subjective Notes (pt seen at 11a) Denies nausea. About 300cc total from ngt/24h with intermittent clamping. CT a/ p yesterday had no major findings. He is urinating well. Objective Vitals/I&O Vital Signs Date Time Temp Pulse Resp B/P Pulse Ox O2 Delivery O2 Flow Rate FiO2 02/10/17 16:15 102/62 02/10/17 16:15 97.2 84 14 99 02/07/17 18:41 Room Air Labs Laboratory Tests Test 02/10/17 07:20 Prothrombin Time 36.8 Prothromb Time International 3.2 Ratio Narrative Exam Soft, mild distention, mild abd ttp, seroma in midline NG brownish output 300cc/24h A/P Assessment and Plan 66 yo M s/p lap VHR with post op bleeding/intraabdominal hematoma. H/o mechanical valve- on coumadin. INR 3.2. Start coumadin 5mg daily. Cancel PICC line. CT looked ok. Low ngt output. D/c NGT now. Fulls and ensure. Encourage OOB. Anderson removed and urinating well. D/w patient and his , and nursing staff. Ag,Adalid PHELPS Feb 10, 2017 18:33
[2017-02-10] MEDS: ATORVASTATIN 40 MG TAB PO SCH (19:47)
[2017-02-11] MEDS: METOCLOPRAMIDE HCL 10 MG/2 ML VIAL IV SCH ×4 (01:44→20:57)
[2017-02-11 04:04] VITALS: BP 105/58; PULSE 86; RESP 19; TEMP 96.6; O2SAT 96
[2017-02-11] MEDS: D5-1/2 NS + KCL 20 MEQ INJ 1,000 ML IV SCH ×3 (05:15→21:15)
[2017-02-11 07:57] VITALS: BP 97/62; PULSE 100; RESP 18; TEMP 96.5; O2SAT 98
[2017-02-11 08:16] LABS: INTERNATIONAL NORMALIZED RATIO 2.8 RATIO; PROTHROMBIN TIME - PATIENT 31.8 SEC (9.8-11.6)
[2017-02-11] MEDS: LISINOPRIL 10 MG TAB PO SCH (09:00)
[2017-02-11] MEDS: BISACODYL 10 MG SUPP RECTAL SCH (09:00)
[2017-02-11] MEDS: DOXAZOSIN MESYLATE 4 MG TAB PO SCH (09:00)
[2017-02-11] MEDS: PANTOPRAZOLE SOD 40 MG DELAYED RELEASE TAB PO SCH (09:37)
[2017-02-11] MEDS: FINASTERIDE 5 MG TAB PO SCH (09:38)
[2017-02-11 12:00] VITALS: BP 94/53; PULSE 99; RESP 18; TEMP 96.8; O2SAT 92
[2017-02-11 16:00] VITALS: BP 99/63; PULSE 92; RESP 18; TEMP 98.1; O2SAT 99
[2017-02-11] MEDS: WARFARIN SOD 5 MG TAB PO SCH (17:19)
[2017-02-11 19:48] VITALS: BP 109/63; PULSE 89; RESP 16; TEMP 98.7; O2SAT 98
[2017-02-11] MEDS: ATORVASTATIN 40 MG TAB PO SCH (20:57)
[2017-02-12 00:10] VITALS: BP 105/65; PULSE 89; RESP 16; TEMP 96.9; O2SAT 98
[2017-02-12] MEDS: D5-1/2 NS + KCL 20 MEQ INJ 1,000 ML IV SCH (01:53)
[2017-02-12] MEDS: METOCLOPRAMIDE HCL 10 MG/2 ML VIAL IV SCH ×2 (01:55→09:24)
[2017-02-12 02:31] VITALS: PULSE 80
[2017-02-12 03:50] VITALS: BP 112/70; PULSE 99; RESP 16; TEMP 97.7; O2SAT 97
[2017-02-12 08:00] VITALS: BP 113/71; PULSE 85; RESP 20; TEMP 96.1; O2SAT 98
[2017-02-12] MEDS: BISACODYL 10 MG SUPP RECTAL SCH (09:00)
[2017-02-12] MEDS: DOXAZOSIN MESYLATE 4 MG TAB PO SCH (09:23)
[2017-02-12] MEDS: PANTOPRAZOLE SOD 40 MG DELAYED RELEASE TAB PO SCH (09:23)
[2017-02-12] MEDS: LISINOPRIL 10 MG TAB PO SCH (09:23)
[2017-02-12] MEDS: FINASTERIDE 5 MG TAB PO SCH (09:24)
--- NOTE | 2017-02-12 12:41 | HHI.DS ---
Discharge Summary Admission Date Jan 31, 2017 at 17:34 Discharge Date: Feb 12, 2017 Admitting Diagnosis hematoma Brief History The patient is a 66-year-old gentleman who underwent laparoscopic repair of 2 ventral hernias several days prior to this admission. Initially did well except for pain, however he developed increasing distention associated with decreased bowel function and multiple episodes of nausea and vomiting. He was admitted on January [address] scan confirmed presence of a significant ileus as well as what appeared to be a very large intra-abdominal hematoma which was felt to be due to postoperative bleeding. The patient had been off of endocrine ileus for 5 days prior to surgery but restarted Lovenox the night of surgery when he went home and began taking 10 mg Coumadin the next day. CBC/BMP: 02/09/17 0527 02/09/17 0527 Significant Findings Laboratory Tests Test 02/10/17 02/11/17 07:20 07:26 Prothrombin Time 36.8 SEC 31.8 SEC (9.8-11.6) (9.8-11.6) Imaging Last Impressions Abdomen X-Ray 02/09/17 0800 Signed Impressions: Service Date/Time: Thursday, February 09, 2017 08:51 - CONCLUSION: 1. No significant change has occurred. Juliano Amezcua MD Abdomen/Pelvis CT 02/09/17 0000 Signed Impressions: Service Date/Time: Thursday, February 09, 2017 15:32 - CONCLUSION: Slightly improved distention of small bowel. Nonspecific mass process in the upper anterior abdomen. High density ascites. Abdominal wall defects. Piero Nguyễn MD PE at Discharge Lungs clear to percussion auscultation Heart with no murmurs or gallops Abdomen slightly distended but soft and minimally tender throughout with no guarding or rebound. Hospital Course The patient had a persistent, significant ileus until 36 hours prior to discharge when he began having more in the way of flatus. CT scan and plain films confirmed the presence of ileus rather than small bowel obstruction. As he gradually improved he returned to full liquid diet after removal of the nasogastric tube was replaced several days before. He received a total of 2 units of packed red blood cells transfusion when his hemoglobin drifted to 7.1 after admission. His renal function which was changed on admission due to dehydration return to normal over the first few days. His hemoglobin is been stable and increasing since the units of blood were transfused. At the time of discharge patient is tolerating a regular diet, having normal bowel movements with normal amount of flatus. He is able to ambulate on his own and has minimal complaints of pain. His vital signs remained stable with a slightly diminished blood pressure and his antihypertensives has been occasionally held while here in the hospital. He states he is ready for discharge. Pt Condition on Discharge: Good Discharge Disposition: Discharge Home Discharge Instructions DIET: Follow Instructions for: As Tolerated, No Restrictions Activities you can perform: Regular-No Restrictions Cesar Joiner MD Feb 12, 2017 12:41
== END 2017-02-12 13:13 | disposition home or self-care (01) | DRG 395 ==
LOC: PHED 14:14 → PHEDA 17:34 → N06B 20:15
PROVIDERS: ADMIT Surgery; ATTEND Surgery
PROC: 0T9B70Z Drainage of Bladder with Drainage Device, Via Natural or Artificial Opening (ICD-10-PCS; principal; 2017-02-01)
PROC: 30233N1 Transfusion of Nonautologous Red Blood Cells into Peripheral Vein, Percutaneous Approach (ICD-10-PCS; 2017-02-02)
DX: K91.3 Postprocedural intestinal obstruction (principal); I10 Essential (primary) hypertension; Z95.2 Presence of prosthetic heart valve; Y83.8 Other surgical procedures as the cause of abnormal reaction of the patient, or of later complication, without mention of misadventure at the time of the procedure; Y81.3 Surgical instruments, materials and general- and plastic-surgery devices (including sutures) associated with adverse incidents; Y92.9 Unspecified place or not applicable; R31.0 Gross hematuria; N40.0 Benign prostatic hyperplasia without lower urinary tract symptoms; E78.00 Pure hypercholesterolemia, unspecified; I25.10 Atherosclerotic heart disease of native coronary artery without angina pectoris; Z95.5 Presence of coronary angioplasty implant and graft; E86.0 Dehydration
CPT/HCPCS: 36430; 74000; 74020; 74177; 80048; 80053; 81001; 83605; 83690; 83735; 85025; 85027; 85610; 85730; 86850; 86900; 86901; 86920; 96361; 96374; 96375; J1170; J2405; J2765; J3480; J7030; J7040; P9016; Q9963; Q9967

== ENCOUNTER 2018-04-21 08:50 | Inpatient (IN) ==
[2018-05-02] MEDS ORDERED: Acetaminophen 325 MG Tablet PO PRN ×2 (01:48→09:00)
[2018-05-02] MEDS ORDERED: Bisacodyl 10 MG Supp RECTAL PRN ×3 (01:51→09:00)
[2018-05-02] MEDS ORDERED: Dextrose 50% in Water 50 ML Vial IV.PUSH PRN ×2 (01:51→09:00)
[2018-05-02] MEDS ORDERED: Sod Phosphate/Sod Biphosphate (Adult) Enema 133 ML Bottle RECTAL PRN ×2 (01:52→09:00)
[2018-05-02 04:53] LABS: Baso % (Auto) 0.2 % (0.0-2.0); Eos # (Auto) 0.1 th/mm3 (0.0-0.4); Eos % (Auto) 0.9 % (0.0-4.0); Hematocrit 25.5 % (39.0-51.0); Hemoglobin 8.4 gm/dL (13.0-17.0); Lymph # (Auto) 1.8 th/mm3 (1.0-4.8); Lymph % (Auto) 13.6 % (9.0-44.0); Mean Corpuscular HGB Conc 32.9 % (32.0-36.0); Mean Corpuscular Volume 91.2 fL (80.0-100.0); Mean Platelet Volume 7.4 fL (7.0-11.0); Mono # (Auto) 0.6 th/mm3 (0.0-0.9); Mono % (Auto) 4.9 % (0.0-8.0); Neut # (Auto) 10.5 th/mm3 (1.8-7.7); Neut % (Auto) 80.4 % (16.0-70.0); Platelet Count 238 th/mm3 (150-450); Red Cell Distribution Width 15.6 % (11.6-17.2); White Blood Count 13.1 th/mm3 (4.0-11.0)
[2018-05-02 05:20] LABS: Alanine Aminotransferase 32 U/L (12-78); Albumin 2.6 g/dL (3.4-5.0); Anion Gap 8 meq/L (5-15); Aspartate Aminotransferase 22 U/L (15-37); Blood Urea Nitrogen 16 mg/dL (7-18); Carbon Dioxide 26.6 meq/L (21.0-32.0); Chloride 103 meq/L (98-107); Glomerular Filtration Rate 84 mL/min (>89); Glucose,Random 108 mg/dL (74-106); Magnesium 2.5 mg/dL (1.5-2.5); Phosphorus 2.1 mg/dL (2.5-4.9); Potassium 4.3 meq/L (3.5-5.1); Sodium 138 meq/L (136-145)
[2018-05-02 05:22] LABS: Alkaline Phosphatase 151 U/L (45-117); Total Protein 6.4 g/dL (6.4-8.2)
[2018-05-02] MEDS ORDERED: LORazepam 0.5 MG Tablet PO PRN (09:00)
[2018-05-02] MEDS ORDERED: Enoxaparin Inj 80 MG/0.8 ML Syringe SQ SCH (09:00)
[2018-05-02] MEDS: Docusate Sodium 100 MG Capsule PO SCH ×2 (09:03→21:01)
[2018-05-02] MEDS: Metoprolol Tartrate 25 MG Tablet PO SCH ×2 (09:03→21:03)
[2018-05-02] MEDS: Amiodarone 200 MG Tablet PO SCH ×2 (09:03→21:02)
[2018-05-02] MEDS: Finasteride 5 MG Tablet PO SCH (09:03)
[2018-05-02] MEDS: Insulin NovoLOG Aspart Correctional Sugar Inj SQ SCH ×4 (09:04→21:06)
[2018-05-02] MEDS: Polyethylene Glycol 3350 17 GM Packet PO SCH (09:04)
[2018-05-02] MEDS: Multivitamin/Minerals Therapeutic Tablet PO SCH (09:04)
[2018-05-02] MEDS ORDERED: Warfarin Consult Pharmacy 1 EACH OTHER SCH (10:30)
--- NOTE | 2018-05-02 11:45 | P.PNCA ---
- Note CVT: Post Op Day #: 3 Subjective/Hospital Course:: Service [facility] Primary Care Physician No Primary Care Physician Admission Diagnosis chest pain, significant cardiac history Diagnoses: Chief Complaint: Chest pain Travel History International Travel<30 Days: No Contact w/Intl Traveler <30 Da: No Traveled to Known Affected Are: No History of Present Illness The patient is a 67-year-old male with past medical history of aortic valve replacement and CAD who is presenting to the hospital with chest pain. The patient says that the chest pain started after ambulating back from the bathroom. The patient said that the pain was located in the center of his chest. He described the quality of the pain to be harsh. He said that the pain did not radiate anywhere. He was sweating profusely with the episode. He did endorse shortness of breath associated with the chest pain. He says he has never had chest pain before. EMT arrived and administered nitroglycerin which improved the patient's symptoms. He said his symptoms were improving by the time he arrived at the hospital. The patient says that he has had 5 stents placed but has never had chest pain before. He says he is recently getting over the flu. He said he went to a walk-in clinic 5-6 days ago and was given antibiotics but he never took them as he was improving. He endorses decreased appetite with the flu. He has been taking milk of magnesia for constipation. Review of Systems Except as stated in HPI: all other systems reviewed are Neg Past Family Social History Past Medical History Aortic valve replacement in 1994 CAD status post 5 stents Past Surgical History Hernia repair with complication of hematoma Prostate surgery Allergies: Coded Allergies: No Known Allergies (Verified , 01/31/17) Family History The patient denies pertinent family history Social History The patient does not smoke. He endorses 1-2 beers a week. Physical Exam Vital Signs Vital Signs Date Time Temp Pulse Resp B/P (MAP) Pulse Ox O2 Delivery O2 Flow Rate FiO2 04/21/18 10:00 79 18 130/61 (84) 98 Room Air 04/21/18 07:52 86 18 99/57 (71) 98 Room Air 04/21/18 07:46 84 18 98 Room Air 04/21/18 06:51 100 20 105/63 (77) 98 Physical Exam GENERAL: This is a well-nourished, well-developed patient, in no apparent distress. SKIN: No rashes, ecchymoses or lesions. Cool and dry. HEAD: Atraumatic. Normocephalic. No temporal or scalp tenderness. EYES: Pupils equal round and reactive. Extraocular motions intact. No scleral icterus. No injection or drainage. ENT: Nose without bleeding, purulent drainage or septal hematoma. Throat without erythema, tonsillar hypertrophy or exudate. Uvula midline. Airway patent. NECK: Trachea midline. No JVD or lymphadenopathy. Supple, nontender, no meningeal signs. CARDIOVASCULAR: Regular rate and rhythm. Murmur appreciated. RESPIRATORY: Mild crackles at the right base. GASTROINTESTINAL: Abdomen soft, non-tender, nondistended. No hepato-splenomegaly , or palpable masses. No guarding. MUSCULOSKELETAL: Extremities without clubbing, cyanosis, or edema. No joint tenderness, effusion, or edema noted. NEUROLOGICAL: Awake and alert. Cranial nerves II through XII intact. Motor and sensory grossly within normal limits. Five out of 5 muscle strength in all muscle groups. Normal speech. Laboratory Laboratory Tests Test 04/21/18 07:18 04/21/18 10:02 White Blood Count 12.5 Red Blood Count 4.68 Hemoglobin 14.0 Hematocrit 42.3 Mean Corpuscular Volume 90.3 Mean Corpuscular Hemoglobin 30.0 Mean Corpuscular Hemoglobin Concent 33.2 Red Cell Distribution Width 15.0 Platelet Count 173 Mean Platelet Volume 7.5 Neutrophils (%) (Auto) 86.8 Lymphocytes (%) (Auto) 7.2 Monocytes (%) (Auto) 5.6 Eosinophils (%) (Auto) 0.2 Basophils (%) (Auto) 0.2 Neutrophils # (Auto) 10.9 Lymphocytes # (Auto) 0.9 Monocytes # (Auto) 0.7 Eosinophils # (Auto) 0.0 Basophils # (Auto) 0.0 CBC Comment DIFF FINAL Differential Comment Prothrombin Time 22.3 Prothromb Time International Ratio 2.2 Activated Partial Thromboplast Time 56.3 Blood Urea Nitrogen 14 Creatinine 1.20 Random Glucose 118 Total Protein 8.0 Albumin 3.2 Calcium Level 8.3 Magnesium Level 2.3 Alkaline Phosphatase 116 Aspartate Amino Transf (AST/SGOT) 30 Alanine Aminotransferase (ALT/SGPT) 22 Total Bilirubin 0.9 Sodium Level 135 Potassium Level 4.2 Chloride Level 103 Carbon Dioxide Level 21.0 Anion Gap 11 Estimat Glomerular Filtration Rate 61 Total Creatine Kinase 57 Troponin I LESS THAN 0.02 LESS THAN 0.02 B-Type Natriuretic Peptide 155 Result Diagram: 04/21/1871704/21/18717 Imaging Last Impressions Chest X-Ray 04/21/18 07 Signed Impressions: CONCLUSION: Previous bypass, with mild cardiomegaly and minimal bibasilar parenchymal garces es Caprini VTE Risk Assessment Caprini VTE Risk Assessment: Mod/High Risk (score >= 2) Caprini Risk Assessment Model 3 Point Value = 1 Point Value = 2 Point Value = 3 Point Value = 5 Age 41-60 Minor surgery BMI > 25 kg/m2 Swollen legs Varicose veins or History of unexplained or recurrent spontaneous Oral contraceptives or hormone replacement Sepsis (< 1 month) Serious lung disease, including pneumonia (< 1 month) Abnormal pulmonary function Acute myocardial infarction Congestive heart failure (< 1 month) History of inflammatory bowel disease Medical patient at bed rest Age 61-74 Arthroscopic surgery Major open surgery (> 45 min) Laparoscopic surgery (> 45 min) Malignancy Confined to bed (> 72 hours) Immobilizing plaster cast Central venous access Age >= 75 History of VTE Family history of VTE Factor V Leiden Prothrombin [id number] Lupus anticoagulant Anticardiolipin antibodies Elevated serum homocysteine Heparin-induced thrombocytopenia Other congenital or acquired thrombophilia Stroke (< 1 month) Elective arthroplasty Hip, pelvis, or leg fracture Acute spinal cord injury (< 1 month) Prophylaxis Regimen 3 Total Risk Factor Score Risk Level Prophylaxis Regimen 0-1 Low Early ambulation 2 Moderate Order ONE of the following: *Sequential Compression Device (SCD) *Heparin 5000 units SQ BID 3-4 Higher Order ONE of the following medications: *Heparin 5000 units SQ TID *Enoxaparin/Lovenox 40 mg SQ daily (WT < 150 kg, CrCl > 30 mL/min) *Enoxaparin/Lovenox 30 mg SQ daily (WT < 150 kg, CrCl > 10-29 mL/min) *Enoxaparin/Lovenox 30 mg SQ BID (WT < 150 kg, CrCl > 30 mL/min) AND/OR *Sequential Compression Device (SCD) 5 or more Highest Order ONE of the following medications: *Heparin 5000 units SQ TID (Preferred with Epidurals) *Enoxaparin/Lovenox 40 mg SQ daily (WT < 150 kg, CrCl > 30 mL/min) *Enoxaparin/Lovenox 30 mg SQ daily (WT < 150 kg, CrCl > 10-29 mL/min) *Enoxaparin/Lovenox 30 mg SQ BID (WT < 150 kg, CrCl > 30 mL/min) AND *Sequential Compression Device (SCD) Assessment and Plan Assessment and Plan Acute chest pain/ CAD The pt has a history of CAD s/p 5 stents. He presented with substernal chest pain, diaphoresis and shortness of breath. His symptoms improved with NTG. His mass communications professor has been notified. EKG with T wave inversions in the lateral leads. - follow up with cardiology. - keep pt NPO for now. - continue cardiac regimen. Hold antihypertensives s/t low blood pressure. Resume as appropriate. - Lopressor added by cardiology. - telemetry. Aortic valve replacement On Coumadin. - continue Coumadin with goal INR 2.5 - 3.5. Flu-like illness Improving. CXR unremarkable. - cough suppressants as needed. Leukocytosis/ Hyperglycemia Likely a stress reaction. - follow CBC. - check an A1c. PPx: Coumadin Code Status Full Discussed Condition With Pt, Pedrito Hurd DO Apr 21, 2018 10:58 Subjective/Hospital Course: 67-year-old gentleman with a known history of coronary artery disease and aortic valve disease, status post previous aortic valve replacement by Dr. Schulte , as well as a history of multiple intracoronary stents in the LAD, diagonal and circumflex arteries most recently in 2014. The patient now presents with recurrent episodes of substernal chest discomfort described as a pressure pain with associated shortness of breath, lightheadedness and diaphoresis. The patient was seen and evaluated, underwent further workup including troponins, which were negative, but an EKG was concerning for ischemia, as well as symptomatology. He underwent a coronary angiogram by Dr. Fox, which revealed multivessel coronary artery disease. We were consulted for surgical revascularization therapy. PAST MEDICAL HISTORY: 1. Significant for aortic valve disease, Coronary artery disease, status post multiple PCIs, Eso-valhsev-uvucnedqm diabetes mellitus, Hypertension, Benign prostatic hypertrophy, Endocarditis, hyperlipidemia. PAST SURGICAL HISTORY: Remarkable for a mechanical aortic valve replacement ( bridges with lovenox) Multiple intracoronary stents. 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 Redo Clampless Off-pump Coronary Artery Bypass Grafting x 3 with Left Internal Mammary Artery (BULLARD) to the Left Anterior Descending (LAD), reverse saphenous vein graft to the ramus marginalis (RM), reverse saphenous vein graft to the Obtuse Marginal branch of the Left Circumflex artery (OM) 2. Myocardial Lysis of Adhesions 3. Right Leg Endoscopic Vein [place] 4. Left Femoral Arterial Line Placement extubated after surgery crystalloid 3800cc, 750cc cell saver , 1500cc EBL 04/30 pt feels fair , on nasal cannula, no pressors , off insulin gtt NSR to sinus tach> will start BB + 5 kg, gentle diuresis discussed with Dr Ramos, will start lovenox 70mg q12/ and coumadin remove chest tubes in am transfer to stepdown 05/01/18 Doing well, c/o incisional pain 05/02/18 doing well, no complaints. Coumadin and lovenox restarted. Objective:: Vital Signs - 24 hr 05/02/18 01:00 05/02/18 02:00 05/02/18 03:00 Temperature Pulse Rate 104 H 90 89 Respiratory Rate 18 Blood Pressure Pulse Oximetry 05/02/18 04:00 05/02/18 05:00 05/02/18 05:05 Temperature 97.9 F Pulse Rate 104 H 92 H 91 H Respiratory Rate 20 Blood Pressure 96/64 L Pulse Oximetry 96 05/02/18 06:00 05/02/18 07:00 05/02/18 08:00 Temperature 98.4 F 98.4 F Pulse Rate 88 91 H 98 H Respiratory Rate Blood Pressure 104/59 L 104/59 L Pulse Oximetry 95 95 05/02/18 09:00 05/02/18 09:11 05/02/18 10:00 Temperature Pulse Rate 96 H 98 H 96 H Respiratory Rate 18 Blood Pressure Pulse Oximetry 94 L Labs:: Laboratory Results - last 12 hr 05/02/18 05/02/18 05/02/18 04:30 04:30 10:04 WBC 13.1 H RBC 2.80 L Hgb 8.4 L Hct 25.5 L MCV 91.2 MCH 30.0 MCHC 32.9 RDW 15.6 Plt Count 238 MPV 7.4 Neut % (Auto) 80.4 H Lymph % (Auto) 13.6 [place] % (Auto) 4.9 Eos % (Auto) 0.9 Baso % (Auto) 0.2 Neut # (Auto) 10.5 H Lymph # (Auto) 1.8 [place] # (Auto) 0.6 Eos # (Auto) 0.1 Baso # (Auto) 0.0 WBC Differential . Differential Comment Auto diff final PT 10.0 INR 1.0 Sodium 138 Potassium 4.3 Chloride 103 Carbon Dioxide 26.6 Anion Gap 8 BUN 16 Creatinine 0.90 Estimated GFR 84 L Random Glucose 108 H Calcium 8.0 L Phosphorus 2.1 L Magnesium 2.5 Total Bilirubin 0.5 AST 22 ALT 32 Alkaline Phosphatase 151 H Total Protein 6.4 Albumin 2.6 L Result Diagrams: 05/02/18 04:30 05/02/18 04:30 Cardiovascular:: RRR Telemetry:: NSR Pulmonary:: CTA GI/:: NABS Incision:: dry and intact - Plan (1) CAD (coronary artery disease) Plan:: s/p REDO sternotomy for CABG with prior mechanical AVR. Diurese Plan discharge tomorrow Daily INR, coumadin
[2018-05-02] MEDS: LORazepam 0.5 MG Tablet PO PRN (21:04)
[2018-05-02] MEDS: Enoxaparin Inj 80 MG/0.8 ML Syringe SQ SCH (21:05)
[2018-05-03] MEDS: Insulin NovoLOG Aspart Correctional Sugar Inj SQ SCH ×4 (08:14→21:57)
[2018-05-03] MEDS: Metoprolol Tartrate 25 MG Tablet PO SCH ×2 (09:38→21:45)
[2018-05-03] MEDS: Finasteride 5 MG Tablet PO SCH (09:41)
[2018-05-03] MEDS: Amiodarone 200 MG Tablet PO SCH ×2 (09:41→21:44)
[2018-05-03] MEDS: Multivitamin/Minerals Therapeutic Tablet PO SCH (09:41)
[2018-05-03] MEDS: Enoxaparin Inj 80 MG/0.8 ML Syringe SQ SCH (09:43)
[2018-05-03] MEDS: Polyethylene Glycol 3350 17 GM Packet PO SCH (09:44)
[2018-05-03] MEDS: Docusate Sodium 100 MG Capsule PO SCH ×2 (09:44→21:44)
--- NOTE | 2018-05-03 13:51 | P.PNCA ---
- Note Subjective/Hospital Course: 67-year-old gentleman with a known history of coronary artery disease and aortic valve disease, status post previous aortic valve replacement by Dr. Schulte , as well as a history of multiple intracoronary stents in the LAD, diagonal and circumflex arteries most recently in 2014. The patient now presents with recurrent episodes of substernal chest discomfort described as a pressure pain with associated shortness of breath, lightheadedness and diaphoresis. The patient was seen and evaluated, underwent further workup including troponins, which were negative, but an EKG was concerning for ischemia, as well as symptomatology. He underwent a coronary angiogram by Dr. Fox, which revealed multivessel coronary artery disease. We were consulted for surgical revascularization therapy. PAST MEDICAL HISTORY: 1. Significant for aortic valve disease, Coronary artery disease, status post multiple PCIs, Isp-pslfyvg-emazasoem diabetes mellitus, Hypertension, Benign prostatic hypertrophy, Endocarditis, hyperlipidemia. PAST SURGICAL HISTORY: Remarkable for a mechanical aortic valve replacement ( bridges with lovenox) Multiple intracoronary stents. 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 Redo Clampless Off-pump Coronary Artery Bypass Grafting x 3 with Left Internal Mammary Artery (BULLARD) to the Left Anterior Descending (LAD), reverse saphenous vein graft to the ramus marginalis (RM), reverse saphenous vein graft to the Obtuse Marginal branch of the Left Circumflex artery (OM) 2. Myocardial Lysis of Adhesions 3. Right Leg Endoscopic Vein [place] 4. Left Femoral Arterial Line Placement extubated after surgery crystalloid 3800cc, 750cc cell saver , 1500cc EBL 04/30 pt feels fair , on nasal cannula, no pressors , off insulin gtt NSR to sinus tach> will start BB + 5 kg, gentle diuresis discussed with Dr Ramos, will start lovenox 70mg q12/ and coumadin remove chest tubes in am transfer to stepdown 05/03 INR 1.1, did not receive ordered coumadin over the weekend will give 7.5mg today / continue lovenox 100,g bid pt very concerned about going home today / worried about his INR states that was concerned that going home today was too soon will dc in am Objective: Vital Signs - 24 hr 05/02/18 14:00 05/02/18 15:00 05/02/18 16:00 Temperature 98.4 F Pulse Rate 98 H 98 H 92 H Respiratory Rate Blood Pressure 97/57 L Pulse Oximetry 96 05/02/18 17:00 05/02/18 18:00 05/02/18 19:00 Temperature Pulse Rate 102 H 100 H 99 H Respiratory Rate Blood Pressure Pulse Oximetry 96 05/02/18 19:50 05/02/18 20:00 05/02/18 20:32 Temperature 98.0 F Pulse Rate 100 H 100 H 102 H Respiratory Rate 18 20 Blood Pressure 106/60 Pulse Oximetry 96 95 05/02/18 21:00 05/02/18 22:00 05/02/18 23:00 Temperature Pulse Rate 100 H 108 H 92 H Respiratory Rate Blood Pressure Pulse Oximetry 05/02/18 23:44 05/03/18 00:00 05/03/18 00:30 Temperature 97.6 F Pulse Rate 95 H 90 Respiratory Rate 19 19 Blood Pressure 94/61 L Pulse Oximetry 97 05/03/18 01:00 05/03/18 02:00 05/03/18 03:00 Temperature Pulse Rate 89 90 89 Respiratory Rate Blood Pressure Pulse Oximetry 05/03/18 03:11 05/03/18 04:00 05/03/18 05:00 Temperature 97.8 F Pulse Rate 97 H 88 87 Respiratory Rate 19 Blood Pressure 100/66 Pulse Oximetry 96 05/03/18 06:00 Temperature Pulse Rate 85 Respiratory Rate Blood Pressure Pulse Oximetry GENERAL: A&O x 3 SKIN: Warm and dry. prevena dressing to chest HEAD: Normocephalic. EYES: No scleral icterus. No injection or drainage. NECK: Supple, trachea midline. No JVD or lymphadenopathy. CARDIOVASCULAR: Regular rate and rhythm without murmurs, gallops, or rubs. / + click RESPIRATORY: Breath sounds equal bilaterally. No accessory muscle use. GASTROINTESTINAL: Abdomen soft, non-tender, nondistended. MUSCULOSKELETAL: No cyanosis, or edema. BACK: Nontender without obvious deformity. No CVA tenderness. Labs: Laboratory Results - last 12 hr 05/03/18 05/03/18 05/03/18 03:47 07:52 12:50 PT 10.0 INR 1.0 POC Glucose 124 H 101 Result Diagrams: 05/02/18 04:30 05/02/18 04:30 Telemetry: NSR - Plan (1) CAD (coronary artery disease) (2) S/P CABG x 3 Plan: ASA, no statin with recent elevated LFT BB OOB ambulate + BM (3) Hypertension Plan: stable on home meds (4) S/P AVR (aortic valve replacement) Plan: continue lovenox and coumadin goal INR 2.5-3.5 total of 7.5mg today (1) CAD (coronary artery disease) Qualifiers: Coronary Disease-Associated Artery/Lesion type: [place] artery Associated angina: with unstable angina (3) Hypertension Qualifiers: Hypertension type: essential hypertension Qualified Code(s): I10 - Essential (primary) hypertension
--- NOTE | 2018-05-03 15:28 | P.DCO ---
- Home Health Nursing Order: Signs/symptoms of disease process, Wound care and dressing changes, Nursing assessment with vital signs Instructions: PREVENA Single Use Negative Wound Therapy System Caregiver Instruction Sheet 1. A Prevena dressing system was applied to the chest incision during surgery , to promote wound healing. It works via a suction device (negative pressure wound therapy) to remove low to moderate levels of exudate (drainage) and infectious materials. We recommend that the device stay in place for up to seven days, from day of surgery. 2. Day of Surgery // Day of Removal ____7// 3. The dressing should only be removed by a health healthcare consultant. Please arrange removal of device to coincide with Home Health visit and or with Nursing staff at Rehab 4. If skin reddening or irritation of skin occurs, or excessive drainage, please notify the Cardiovascular Surgeons office at [phone]. 5. Light showering is permissible; however the pump should be disconnected and placed in safe location, where it will not get wet. The dressing should not be exposed to direct spray or submerged in water. No bath tub / shower only. Ensure the end of the tubing attached to the dressing is facing down so that water does not enter the top of the tube. 6. To remove Prevena dressing: press purple button to turn off device / remove the suction. Then disconnect the tubing from the pump. The fixation strips should be stretched away from the skin and the dressing lifted at one corner and peeled back until it has been fully removed. 7. After removal, it is ok to shower daily using liquid dial soap and clean wash cloth, rinse and pat dry, and leave incision open to air dry. For any concerns regarding Prevena dressing, and or wounds, please contact Luiza Patel, patient navigator at [phone] or notify the Cardiovascular Surgeons office at [phone]. PREVENA Single Use Negative Wound Therapy System Caregiver Instruction Sheet 1. A Prevena dressing system was applied to the chest incision during surgery , to promote wound healing. It works via a suction device (negative pressure wound therapy) to remove low to moderate levels of exudate (drainage) and infectious materials. We recommend that the device stay in place for up to seven days, from day of surgery. 2. Day of Surgery___04/29/18 Day of Removal 05/06/18 3. The dressing should only be removed by a health healthcare consultant. Please arrange removal of device to coincide with Home Health visit and or with Nursing staff at Rehab 4. If skin reddening or irritation of skin occurs, or excessive drainage, please notify the Cardiovascular Surgeons office at [phone]. 5. Light showering is permissible; however the pump should be disconnected and placed in safe location, where it will not get wet. The dressing should not be exposed to direct spray or submerged in water. No bath tub / shower only. Ensure the end of the tubing attached to the dressing is facing down so that water does not enter the top of the tube. 6. To remove Prevena dressing: press purple button to turn off device / remove the suction. Then disconnect the tubing from the pump. The fixation strips should be stretched away from the skin and the dressing lifted at one corner and peeled back until it has been fully removed. 7. After removal, it is ok to shower daily using liquid dial soap and clean wash cloth, rinse and pat dry, and leave incision open to air dry. For any concerns regarding Prevena dressing, and or wounds, please contact Luiza Patel, patient navigator at [phone] or notify the Cardiovascular Surgeons office at [phone]. PT/INR on 05/[address] Hernandez goal 2.5-3.5 - Case Management Consult Yes - Certification I have seen patient Bishop Dinh on 05/03/18. My clinical findings support the need for the requested home health care services because: Deconditioned with increased weakness I certify that my clinical findings support that this patient is homebound because: Post-op weakness
[2018-05-03] MEDS: Enoxaparin Inj 100 MG/ML Syringe SQ SCH (21:44)
[2018-05-03] MEDS: LORazepam 0.5 MG Tablet PO PRN (21:45)
[2018-05-04 06:16] LABS: Prothrombin Time 10.6 sec (9.8-11.6)
[2018-05-04] MEDS ORDERED: Insulin NovoLOG Aspart Correctional Sugar Inj SQ SCH (08:00)
[2018-05-04] MEDS: Docusate Sodium 100 MG Capsule PO SCH (09:53)
[2018-05-04] MEDS: Finasteride 5 MG Tablet PO SCH (09:54)
[2018-05-04] MEDS: Amiodarone 200 MG Tablet PO SCH (09:55)
[2018-05-04] MEDS: Multivitamin/Minerals Therapeutic Tablet PO SCH (09:55)
[2018-05-04] MEDS: Metoprolol Tartrate 25 MG Tablet PO SCH (09:56)
[2018-05-04] MEDS: Enoxaparin Inj 100 MG/ML Syringe SQ SCH (09:56)
[2018-05-04] MEDS: Polyethylene Glycol 3350 17 GM Packet PO SCH (09:59)
--- NOTE | 2018-05-04 13:59 | P.DS ---
Date of admission: 04/21/18 14:00 Primary care physician: [facility] Primary Care Physician Dr Rik Dutta Attending physician on discharge: Itzel Ramos Anticipated date of discharge: 05/04/18 Brief History from admission: 67-year-old gentleman with a known history of coronary artery disease and aortic valve disease, status post previous aortic valve replacement by Dr. Schulte , as well as a history of multiple intracoronary stents in the LAD, diagonal and circumflex arteries most recently in 2014. The patient now presents with recurrent episodes of substernal chest discomfort described as a pressure pain with associated shortness of breath, lightheadedness and diaphoresis. The patient was seen and evaluated, underwent further workup including troponins, which were negative, but an EKG was concerning for ischemia, as well as symptomatology. He underwent a coronary angiogram by Dr. Fox, which revealed multivessel coronary artery disease. We were consulted for surgical revascularization therapy. PAST MEDICAL HISTORY: 1. Significant for aortic valve disease, Coronary artery disease, status post multiple PCIs, Ubs-cecgjpr-ktomufjjo diabetes mellitus, Hypertension, Benign prostatic hypertrophy, Endocarditis, hyperlipidemia. PAST SURGICAL HISTORY: Remarkable for a mechanical aortic valve replacement ( bridges with lovenox) Multiple intracoronary stents. DS: Diagnosis - Discharge Diagnosis (1) CAD (coronary artery disease) Status: Acute (2) S/P CABG x 3 Status: Acute (3) Hypertension Status: Acute (4) S/P AVR (aortic valve replacement) Status: Chronic (5) Blood loss anemia Status: Acute DS: Medications - Discharge Medications Prescriptions: amiodarone 200 mg PO Q12HR #28 tab aspirin 81 mg PO DAILY #30 tab docusate sodium [DOK] 100 mg PO BID #60 cap enoxaparin [Lovenox] 100 mg SUB-Q DAILY 5 Days #5 ml metoprolol tartrate 25 mg PO Q12HR 30 Days tab fhjfkvjy-ewfz-TE-calcium-mins [Thera M Plus (ferrous fumarat)] 1 tab PO DAILY # 30 tab oxycodone 5 mg PO Q4H PRN #40 tab PRN Reason: Pain Scale 3 To 5 warfarin [Coumadin] 7.5 mg PO DAILY #30 tab DS: Summary Hospital Course: 04/[address]CHO with severe LV Dysfunction (EF 20-25%) Pending GI Clearance 04/27 LFT's trending down liver work up so revealed (+) LEANDRA, (+) ASMA, 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 Redo Clampless Off-pump Coronary Artery Bypass Grafting x 3 with Left Internal Mammary Artery (BULLARD) to the Left Anterior Descending (LAD), reverse saphenous vein graft to the ramus marginalis (RM), reverse saphenous vein graft to the Obtuse Marginal branch of the Left Circumflex artery (OM) 2. Myocardial Lysis of Adhesions 3. Right Leg Endoscopic Vein [place] 4. Left Femoral Arterial Line Placement extubated after surgery crystalloid 3800cc, 750cc cell saver , 1500cc EBL 04/30 pt feels fair , on nasal cannula, no pressors , off insulin gtt NSR to sinus tach> will start BB + 5 kg, gentle diuresis discussed with Dr Ramos, will start lovenox 70mg q12/ and coumadin remove chest tubes in am transfer to stepdown 05/03 INR 1.1, did not receive ordered coumadin over the weekend will give 7.5mg today / continue lovenox 100,g bid pt very concerned about going home today / worried about his INR states that was concerned that going home today was too soon will dc in am 05/04 INR 1.1 dc on coumadin 7.5mg daily / with Lovenox 100mg bid dc lovenox when INR>3.5 on room air stable for dc home - Time Spent with Patient Total time spent providing and/or coordinating discharge services: - Quality: AMI Contraindication-PCI Procedure: Not indicated Contraindication-Statin: Contraindicated (elevated LFT) Exam Vital signs: Vital Signs 05/03/18 14:00 05/03/18 15:00 05/03/18 16:00 Temperature 98.6 F Pulse Rate 88 76 97 H Respiratory Rate 18 Blood Pressure 108/64 Pulse Oximetry 97 05/03/18 16:05 05/03/18 17:00 05/03/18 17:37 Temperature Pulse Rate 75 109 H 103 H Respiratory Rate 16 Blood Pressure Pulse Oximetry 05/03/18 19:00 05/03/18 19:15 05/03/18 20:00 Temperature 98.2 F Pulse Rate 98 H 98 H 96 H Respiratory Rate 16 Blood Pressure 110/71 Pulse Oximetry 100 05/03/18 21:00 05/03/18 22:00 05/03/18 23:00 Temperature 98.9 F Pulse Rate 92 H 96 H 95 H Respiratory Rate 15 Blood Pressure 109/63 Pulse Oximetry 95 05/04/18 00:00 05/04/18 01:00 05/04/18 02:00 Temperature Pulse Rate 90 87 83 Respiratory Rate Blood Pressure Pulse Oximetry 05/04/18 03:00 05/04/18 03:31 05/04/18 04:08 Temperature 98.6 F Pulse Rate 90 98 H 85 Respiratory Rate 15 Blood Pressure 106/68 Pulse Oximetry 98 05/04/18 05:00 05/04/18 06:00 05/04/18 07:00 Temperature 98.1 F Pulse Rate 92 H 89 93 H Respiratory Rate 16 Blood Pressure 107/59 L Pulse Oximetry 99 05/04/18 09:21 Temperature Pulse Rate 91 H Respiratory Rate 18 Blood Pressure Pulse Oximetry Intake & Output 05/03/18 05/04/18 05/04/18 18:59 06:59 18:59 Intake Total 720 / 720 480 / 480 Output Total 400 / 400 550 / 550 Balance 320 / 320 -70 / -70 Weight 103.2 kg Intake: Oral 720 / 720 480 / 480 Output: Urine 400 / 400 550 / 550 Other: # Voids 3 4 Date of Last Bowel Movement 05/03/18 - Constitutional no acute distress - Routine HEENT Exam Head: Present: normocephalic Eye: Present: EOMI ENT: Present: mucous membranes moist - Routine Neck Exam Present: supple - Routine Chest/Breast/Axilla Exam Chest wall: Present: tenderness (sternal incision intact and well approximated ) - Routine Respiratory Exam Present: CTA bilaterally - Routine Cardiovascular Exam Present: RRR, click - Routine Abdominal Exam Present: soft, normoactive bowel sounds - Routine Extremities Exam Present: edema (trace ) - Routine Skin Exam Present: intact - Routine Neurological Exam Present: alert, oriented X3, CN II-XII intact Results Procedures completed during hospitalization: 04/29 1. Redo Clampless Off-pump Coronary Artery Bypass Grafting x 3 with Left Internal Mammary Artery (BULLARD) to the Left Anterior Descending (LAD), reverse saphenous vein graft to the ramus marginalis (RM), reverse saphenous vein graft to the Obtuse Marginal branch of the Left Circumflex artery (OM) 2. Myocardial Lysis of Adhesions 3. Right Leg Endoscopic Vein [place] 4. Left Femoral Arterial Line Placement Labs on day of discharge: Labs from last 24 hours 05/04/18 05/04/18 05/04/18 11:33 07:34 05:58 PT 10.6 INR 1.0 POC Glucose 118 H 109 05/03/18 05/03/18 21:52 17:28 PT INR POC Glucose 159 H 123 H Discharge Plan - Discharge Disposition Patient Disposition: Disch W/Home Health Service - Discharge Condition Condition: Good - Discharge Details Anticipated Discharge Date: 05/04/18 Discharge Comment: ok to discharge - Physicians Team Primary Care Provider: Primary Care Brie Webb Attending Provider: Sofie Hernandez Rxs /Orders / Referrals /Forms Prescriptions: New amiodarone 200 mg Tablet 200 mg PO Q12HR Qty: 28 RF: 0 aspirin 81 mg Tablet,Chewable 81 mg PO DAILY Qty: 30 RF: 2 cholecalciferol (vitamin D3) [Vitamin D3] 1,000 unit Tablet 1,000 unit PO DAILY RF: 0 docusate sodium [DOK] 100 mg Capsule 100 mg PO BID Qty: 60 RF: 0 enoxaparin [Lovenox] 100 mg/mL Syringe 100 mg SUB-Q DAILY 5 Days Qty: 5 RF: 1 metoprolol tartrate 25 mg Tablet 25 mg PO Q12HR 30 Days RF: 2 gypkjrpg-nadh-RL-calcium-mins [Thera M Plus (ferrous fumarat)] 9 mg iron-400 mcg Tablet 1 tab PO DAILY Qty: 30 RF: 2 oxycodone 5 mg Tablet 5 mg PO Q4H PRN (Reason: Pain Scale 3 To 5) Qty: 40 RF: 0 warfarin [Coumadin] 7.5 mg Tablet 7.5 mg PO DAILY Qty: 30 RF: 2 Continue cholecalciferol (vitamin D3) 1,000 unit Tablet 1,000 unit PO DAILY doxazosin [Cardura] 4 mg Tablet 4 mg PO DAILY finasteride [Proscar] 5 mg Tablet 5 mg PO DAILY Discontinued atorvastatin 40 mg Tablet 40 mg PO HS lisinopril 10 mg Tablet 10 mg PO DAILY warfarin [Jantoven] 7.5 mg Tablet 7.5 mg PO QWEEK Ambulatory Orders / Order Sets / DME: Complete Blood Count NO Diff (Routine) Timeframe: 2 Weeks Location: Determined by Patient Ordered By: Sofie Hernandez Prothrombin Time INR (Routine) Timeframe: 2 Days Location: Determined by Patient Ordered By: Elizabeth Tee Referrals: Rik Dutta MD [Physician] - See Instructions ( Your appointment has been scheduled for [05/17/18] at [10:45 AM] If you cannot make this appointment, please call the office to reschedule ) Alysa Fox MD [Physician] - See Instructions ( Your appointment has been scheduled for [05/31/18] at [11:00 AM] If you cannot make this appointment, please call the office to reschedule ) Elizabeth Tee [ADVANCE RN PRACTITIONER] - See Instructions ( Your appointment has been scheduled for [05/18/18] at [11:00 AM] If you cannot make this appointment, please call the office to reschedule ) - Discharge Instructions Additional Instructions: Incentive spirometry Q1 hr x 10, while awake, also use acapella device hourly whole awake Sternal Breast Bone Precautions: NO pushing or pulling, ( pt must use sternal pillow to support chest with all activities and with coughing ( takes up to 3 months breast bone to heal ) All females to wear sternal bra , launder as needed Daily incision care: ok to shower daily, no tub bath. Wash all incisions with liquid dial soap, clean wash cloth to each site, rinse and pat dry. Observe for any signs of infection, such as drainage which is dark yellow, hercules, green or foul smelling. Immediately report to the surgeon any drainage from the chest incision, or legs, and for any abnormal drainage from the chest tube sites. Notify surgeon if any temp >101.5 degrees F. When specialty dressing removed/ or if you do not have one, continue to shower daily as above, then rinse and pat incision dry and paint with betadine daily x 5 days. Allow steri strips to fall off if you have any. Avoid lotions, creams, salves, oils, etc. for the first month Please see attached forms for additional instructions regarding post Open Heart specialty wound vacuum dressings. YOSSI or Prevena , Dressing to be removed by Nursing staff on __05/06/[address] Ramos patients , please obtain CBC, BMP, PA & Lat CXR in 2 weeks, results to Dr. Ramos ( prescription will be given) ( ) (Tele: [phone]) , Valve replacement pts will need 2decho in 2 weeks with results to Dr. Ramos . Please obtain 2 d echo at your melter caster office if possible F/U appointment: as per DC instructions: PCP in 2 weeks, CV surgeon 2 weeks, Operations Professional 3-4 weeks For any questions regarding incisions/ dressing / meds / post op care or above Symptoms, Thursday 8am-5pm Heart & Vascular Surgery Office ( Dr. Hernandez & Dr. Ramos), After Hours / Nights (5pm -8am) Weekends and Holidays Please call [facility] ([facility]) Charge Nurse PREVENA Single Use Negative Wound Therapy System Caregiver Instruction Sheet 1. A Prevena dressing system was applied to the chest incision during surgery , to promote wound healing. It works via a suction device (negative pressure wound therapy) to remove low to moderate levels of exudate (drainage) and infectious materials. We recommend that the device stay in place for up to seven days, from day of surgery. 2. Day of Surgery___04/29/18 Day of Removal ____05/06/18 3. The dressing should only be removed by a health healthcare sales representative. Please arrange removal of device to coincide with Home Health visit and or with Nursing staff at Rehab 4. If skin reddening or irritation of skin occurs, or excessive drainage, please notify the Cardiovascular Surgeons office at [phone]. 5. Light showering is permissible; however the pump should be disconnected and placed in safe location, where it will not get wet. The dressing should not be exposed to direct spray or submerged in water. No bath tub / shower only. Ensure the end of the tubing attached to the dressing is facing down so that water does not enter the top of the tube. 6. To remove Prevena dressing: press purple button to turn off device / remove the suction. Then disconnect the tubing from the pump. The fixation strips should be stretched away from the skin and the dressing lifted at one corner and peeled back until it has been fully removed. 7. After removal, it is ok to shower daily using liquid dial soap and clean wash cloth, rinse and pat dry, and leave incision open to air dry. For any concerns regarding Prevena dressing, and or wounds, please contact Luiza Patel, patient navigator at [phone] or notify the Cardiovascular Surgeons office at [phone]. - Post Discharge Care Plan Care Plan Goals: Discharge Care Plan Goals for Coronary Artery Bypass Surgery You have had Coronary Artery Bypass Graft Surgery (also called CABG, clem urena). This surgery created new pathways around blocked parts of your heart s blood vessels, allowing blood to reach your heart muscle. Directions to Meet your Goals: 1. Pain Relief: You will recover faster after surgery if your pain is kept under control: * Take pain medicine as directed by your doctor. * Dont be surprised if you feel sharp pains as your breastbone heals or if you have soreness in your incision during changes in weather. * Tell your doctor if you have questions about what youre feeling, if your medicines dont reduce your pain, or if you suddenly feel worse. 2. Activity: * Dont drive until your doctor says its OK. And never drive while taking opioid pain medicine. * Ask someone to stand nearby while you shower or do other activities, just in case you need help. * Weigh yourself every day, at the same time of day, and in the same kind of clothes. Quick weight gain can be a sign of a problem that needs your doctor's attention. * Follow your doctor's more specific weight restrictions. Dont lift anything heavier than 5 pounds. * Until approved by doctor, avoid mowing the lawn, vacuuming, driving, and doing other activities that could strain your breastbone. 3. Diet and Exercise: * Maintain a healthy weight. If needed, get help to loose extra pounds. * Avoid fatty and fried foods. Stick to lean meats, such as chicken or fish. * Cut back on salt: - Limit canned, dried, packaged, and fast foods. - Dont add salt to your food at the table. - Season foods with herbs instead of salt when you cook * Ask your healthcare provider when you can start a walking program: - If you havent already started a walking program in the hospital, begin with short walks (about 5 minutes) at home. Go a little longer each day. - Choose a safe place with a level surface, such as a local park or mall. - Wear supportive shoes to prevent injury to your knees and ankles. - Walk with someone. Its more fun and helps you stay with it. 4. Prevent Falls/Injury: * If you are unstable on your feet, remember to ask for help from others. * Avoid using very hot water while showering. It can affect your circulation and make you dizzy. * Free up your hands so that you can use them to keep balance. Use a arleen pack , apron, or pockets to carry things. * Arrange your household to keep the items you need handy. Keep everything else out of the way. * Remove items that may cause you to fall, such as throw rugs and electrical cords. * Use nonslip bath mats, grab bars, an elevated toilet seat, and a shower chair in your bathroom * Sit on a shower stool or chair when you shower to keep from falling. 5. Incision Care: Healing takes several weeks. * Check your incision daily for redness, swelling, tenderness, or drainage. * Prevent infection by washing your hands often. If an infection occurs, it will need to be treated right away. * Call your doctor right away if you think you may have an infection. Symptoms include a fever or an incision that leaks white, green, or yellow fluid. * Don't soak your incision in water until your doctor says its OK. This means no hot tubs, bathtubs, or swimming pools. * Follow your doctor's instructions for changing the dressing. * Dont rub the incision, or apply creams or lotions to it. 6. Follow-Up: Do Not miss your follow-up appointment. Keep up with all your appointments and yearly check ups When to call your doctor: Call your doctor right away if you have: Chest pain or a return of the heart symptoms you had before your surgery Fever of 100.4F (38C) or higher, or as directed by your doctor Signs of infection (redness, swelling, drainage, or warmth) at the incision site Shortness of breath Fainting Weight gain of more than 3 pounds in 1 day, more than 5 pounds in 1 week, or whatever weight gain you were told to report by your doctor New or increased swelling in your hands, feet, or ankles Unrelieved pain at the incision site(s) Changes in the location, type, or severity of pain Fast or irregular pulse Persistent abdominal pain Nausea Trouble urinating Any unusual bleeding Call 911: Call 911 right away if you have: Sudden onset of chest pain that is not relieved by medications Shortness of breath
[2018-05-04] MEDS ORDERED: Furosemide 40 MG Tablet PO ONE (15:15)
== END 2018-05-04 15:00 | disposition home health service (06) ==
LOC: HCVR 14:00 → HCPC 05-01 17:00
PROVIDERS: ADMIT Thoracic Surgery (Cardiothoracic Vascular Surgery); ATTEND Thoracic Surgery (Cardiothoracic Vascular Surgery)